=== PATIENT | male | born 1975 | race Caucasian/White ===

== ENCOUNTER 2019-05-26 11:41 | Emergency (ER) | payer OTHER, SELFPAY ==
[2019-05-26 12:19] LABS: Absolute Lymphocytes (CBC) 2.2 K/uL (0.7-4.9); Basophils % 1.8 % (0-1.3); Eosinophils % 5.3 % (0-4.4); Lymphocytes % 26.3 % (15.3-44.8); MPV 8.5 fL (7.6-11.3); Monocytes % 2.9 % (3.3-12.3); RBC Red Blood Cell Count 5.01 M/uL (4.33-5.43)
[2019-05-26] MEDS ORDERED: MORPHINE 4 MG/ML SYR ONE ×2 (12:47→16:35)
[2019-05-26] MEDS ORDERED: ONDANSETRON 4 MG/2 ML VIAL ONE ×2 (12:47→16:35)
[2019-05-26] MEDS ORDERED: NA CHLORIDE 0.9% 1,000 ML ONE ×2 (12:47→14:20)
[2019-05-26] MEDS ORDERED: PANTOPRAZOLE 40 MG INJ ONE (12:47)
[2019-05-26 12:53] LABS: Protime INR 0.94
--- NOTE | 2019-05-26 13:10 | RAD REPORT ---
EXAM DESCRIPTION: RAD - Chest Single View - 05/26/2019 12:48 pm CLINICAL HISTORY: CHEST PAIN Chest pain. COMPARISON: CHEST SINGLE VIEW dated 10/27/2015 FINDINGS: Portable technique limits examination quality. The lungs are grossly clear. The heart is normal in size. No displaced fractures. IMPRESSION: No acute intrathoracic process suspected.
[2019-05-26 13:16] LABS: Urine Blood NEGATIVE (NEG); Urine Glucose 2+ (NEG); Urine Protein NEGATIVE (NEG); Urine pH 5.5 (5.0-7.0)
[2019-05-26 13:19] LABS: Albumin 4.2 g/dL (3.4-5.0); Bilirubin Direct 0.1 mg/dL (0-0.2); Bilirubin Total 0.8 mg/dL (0.2-1.0); Potassium 4.3 mmol/L (3.5-5.1); Protein, Total 7.7 g/dL (6.4-8.2)
[2019-05-26 13:22] LABS: Lipase 392 U/L (73-393); Troponin (Emerg Dept Use Only) < 0.02 ng/mL (0.0-0.045)
--- NOTE | 2019-05-26 14:13 | RAD REPORT ---
EXAM DESCRIPTION: CT - Angio Aorta For Dissection - 05/26/2019 2:03 pm CLINICAL HISTORY: Chest pain radiating to the back. abdominal pain radiating to back;Chest pain COMPARISON: No comparisons TECHNIQUE: CT angiography of the aorta was performed with MIPs. All CT scans are performed using dose optimization technique as appropriate and may include automated exposure control or mA/KV adjustment according to patient size. FINDINGS: A left aortic arch is present with normal branching pattern of the great vessels.No acute aortic finding is seen such as aneurysm, penetrating ulcer or dissection. The celiac axis, SMA, CHEIKH and renal arteries are widely patent. No evidence of pulmonary embolism. The lungs are clear. Diffuse fatty liver is noted.Cholelithiasis.The spleen, adrenal glands and kidneys are within normal limits.Mild peripancreatic inflammatory changes seen in the pancreatic head. No bowel obstruction, free fluid or abscess.Normal appendix.No pathologic enlarged lymphadenopathy id entified. No fracture or worrisome bone lesion seen. IMPRESSION: Mild acute pancreatitis is suspected involving the pancreatic head and uncinate process region.No portal vein thrombus, pancreatic necrosis or pseudocyst identified. Cholelithiasis. No acute aortic abnormality.
[2019-05-26] MEDS ORDERED: INSULIN -REGULAR HUMAN 50 UNIT/0.5 ML ML ONE (14:20)
--- NOTE | 2019-05-26 15:45 | RAD REPORT ---
EXAM DESCRIPTION: US - Abdomen Exam Limited - 05/26/2019 3:36 pm CLINICAL HISTORY: upper abdomen pain;Epigastric pain COMPARISON: No comparisons FINDINGS: The gallbladder demonstrates small shadowing gallstones. No pericholecystic fluid or gallb ladder wall thickening. The common bile duct is normal measuring 5 mm. The liver demonstrates no findings of intrahepatic biliary dilatation. IMPRESSION: Cholelithiasis.
[2019-05-26] MEDS ORDERED: MAGNE/ALUM HYDROXD 30 ML UCUP ONE (16:34)
[2019-05-26] MEDS ORDERED: LIDOCAINE VISCOUS 2% SOLN 15 ML UDC ONE (16:35)
--- NOTE | 2019-05-26 17:14 | ER ---
Nurse's Notes [facility] Name: Vasyl Cope Age: 44 yrs Sex: Male : 1975 Arrival Date: 05/26/2019 Time: 11:42 Bed 16 Private MD: Diagnosis: Cholelithiasis;Acute pancreatitis;Diabetes mellitus due to underlying condition with hyperglycemia;Hypertensive heart disease Presentation: 05/26 11:45 Presenting complaint: Patient states: RUQ, LUQ abdominal, epigastric pain that radiated aj1 to the back and left shoulder since yesterday. Patient describes the pain as tightness. Denies N/V/D. Transition of care: patient was not received from another setting of care. Onset of symptoms was May 25, 2019. Risk Assessment: Do you want to hurt yourself or someone else? Patient reports no desire to harm self or others. Initial Sepsis Screen: Does the patient meet any 2 criteria? No. Patient's initial sepsis screen is negative. Does the patient have a suspected source of infection? Yes: Acute abdominal pain. Care prior to arrival: None. 11:45 Method Of Arrival: Ambulatory aj1 11:45 Acuity: BRENDAN 3 aj1 Triage Assessment: 11:48 General: Appears in no apparent distress. uncomfortable, Behavior is calm, cooperative, aj1 appropriate for age. Pain: Complains of pain in epigastric area and left upper quadrant Pain radiates to back, chest, anterior aspect of left shoulder and posterior aspect of left shoulder Pain currently is 9 out of 10 on a pain scale. Neuro: Level of Consciousness is awake, alert, obeys commands. Cardiovascular: Patient's skin is warm and dry. Respiratory: Airway is patent Respiratory effort is even, unlabored, Respiratory pattern is regular, symmetrical. Historical: - Allergies: 11:48 No Known Allergies; aj1 - Home Meds: 11:48 None [Active]; aj1 - PMHx: 11:48 Diabetes - NIDDM; High Cholesterol; Hypertension; aj1 - PSHx: 11:48 knee replacement; ACL repair; aj1 - Immunization history:: Flu vaccine is not up to date. - Social history:: Smoking status: Patient/guardian denies using tobacco. - Ebola Screening: : Patient denies travel to an Ebola-affected area in the 21 days before illness onset. Screenin:55 Abuse screen: Denies threats or abuse. Nutritional screening: No deficits noted. rb1 Tuberculosis screening: No symptoms or risk factors identified. Fall Risk None identified. Assessment: 11:55 General: Appears uncomfortable, Behavior is calm, cooperative. rb1 11:55 Pain: Complains of pain in epigastric area Pain radiates to back and left shoulder Pain rb1 currently is 10 out of 10 on a pain scale. Neuro: Level of Consciousness is awake, alert, obeys commands, Oriented to person, place, time, situation. Cardiovascular: Capillary refill < 3 seconds is brisk in bilateral fingers. Respiratory: Airway is patent Respiratory effort is even, unlabored, Respiratory pattern is regular, symmetrical. GI: Reports nausea. : No signs and/or symptoms were reported regarding the genitourinary system. Derm: Skin is pink, warm \T\ dry. Musculoskeletal: Range of motion: intact in all extremities. 12:55 Reassessment: Patient appears in no apparent distress at this time. Patient and/or rb1 family updated on plan of care and expected duration. Pain level reassessed. Patient is alert, oriented x 3, equal unlabored respirations, skin warm/dry/pink. 13:45 Reassessment: Patient appears in no apparent distress at this time. No changes from rb1 previously documented assessment. 14:43 Reassessment: Patient appears in no apparent distress at this time. Patient and/or rb1 family updated on plan of care and expected duration. Pain level reassessed. Patient is alert, oriented x 3, equal unlabored respirations, skin warm/dry/pink. 16:00 Reassessment: Patient appears in no apparent distress at this time. Patient and/or em family updated on plan of care and expected duration. Pain level reassessed. Patient is alert, oriented x 3, equal unlabored respirations, skin warm/dry/pink. rates pain 6/10. 17:16 Reassessment: Patient appears in no apparent distress at this time. Patient and/or em family updated on plan of care and expected duration. Pain level reassessed. Patient is alert, oriented x 3, equal unlabored respirations, skin warm/dry/pink. 17:49 Reassessment: reports pain is better, rates pain 4/10. em Vital Signs: 11:48 BP 181 / 97; Pulse 93; Resp 18; Temp 98.4; Pulse Ox 95% on R/A; Weight 106.59 kg (R); aj1 Height 5 ft. 10 in. (177.80 cm) (R); Pain 9/10; 12:45 BP 139 / 86; Pulse 88; Resp 14; Temp 98.6(O); Pulse Ox 96% on R/A; Pain 7/10; rb1 13:30 BP 130 / 96; Pulse 83; Resp 15; Temp 98.7(O); Pulse Ox 96% on R/A; Pain 5/10; rb1 14:30 BP 150 / 95; Pulse 81; Resp 15; Temp 98.5(O); Pulse Ox 96% on R/A; Pain 5/10; rb1 16:00 BP 160 / 95; Pulse 84; Resp 14; Pulse Ox 96% on R/A; Pain 6/10; em 11:48 Body Mass Index 33.72 (106.59 kg, 177.80 cm) aj1 ED Course: 11:42 Patient arrived in ED. as 11:47 Triage completed. aj1 11:48 Arm band placed on Patient placed in an exam room. aj1 11:50 Giovanny Puri PA is PHCP. cp 11:50 Kolby Ricks MD is Attending Physician. cp 11:55 Patient has correct armband on for positive identification. Placed in gown. Bed in low rb1 position. Call light in reach. Side rails up X 1. ro[address] reporter on. Pulse ox on. NIBP on. Warm blanket given. 12:05 Elida Seay, RN is Primary Nurse. rb1 12:20 Inserted saline lock: 20 gauge in left antecubital area, using aseptic technique. rb1 ,using aseptic technique. Inserted by SUNNY Badillo Blood collected. 12:49 XRAY Chest (1 view) In Process Unspecified. EDMS 14:03 CT Aorta for Dissection In Process Unspecified. EDMS 15:10 Report given to LUZ Bah. rb1 15:35 Ultrasound completed. Patient tolerated well. sg3 15:35 US Abdomen Limited: RUQ/epigastric area In Process Unspecified. EDMS 17:11 Win Hobson MD is Referral Physician. cp 17:48 No provider procedures requiring assistance completed. IV discontinued, intact, em bleeding controlled, No redness/swelling at site. Pressure dressing applied. Administered Medications: 12:35 Drug: ProTONIX 40 mg Route: IVP; Site: left forearm; rb1 13:00 Follow up: Response: No adverse reaction rb1 12:35 Drug: morphine 4 mg Route: IVP; Site: left forearm; rb1 13:00 Follow up: Response: No adverse reaction; Pain is decreased rb1 12:35 Drug: Zofran 4 mg Route: IVP; Site: right forearm; rb1 13:00 Follow up: Response: No adverse reaction; Nausea is decreased rb1 12:35 Drug: NS 0.9% 1000 ml Route: IV; Rate: 1 bolus; Site: left forearm; rb1 14:29 Drug: NS 0.9% 1000 ml Route: IV; Rate: 1 bolus; Site: left forearm; rb1 15:28 Follow up: IV Status: Completed infusion rb1 14:30 Drug: Insulin Regular Human 10 units {Co-Signature: la1 (Jus Munson RN).} {Note: IVP.} rb1 Route: IVP; Site: left forearm; 15:27 Follow up: Response: No adverse reaction; Blood sugar is lowered; BS 243 rb1 16:28 Drug: GI Cocktail without - (Maalox Suspension 30 ml, Lidocaine Liquid 2 % 15 ss ml) Route: PO; 17:50 Follow up: Response: No adverse reaction; Pain is decreased em 16:32 Drug: Zofran 4 mg Route: IVP; Site: left forearm; ss 17:50 Follow up: Response: No adverse reaction em 16:32 Drug: morphine 4 mg Route: IVP; Site: left antecubital; ss 17:50 Follow up: Response: No adverse reaction; Pain is decreased em Point of Care Testing: Blood Glucose: 15:18 Blood Glucose: 243 mg/dL; rb1 Ranges: Intake: Outcome: 17:13 Discharge ordered by . cp 17:49 Discharged to home ambulatory. em 17:49 Condition: good 17:49 Discharge instructions given to patient, Instructed on discharge instructions, follow up and referral plans. medication usage, Demonstrated understanding of instructions, follow-up care, medications, Prescriptions given X 2. 17:51 Patient left the ED. em Signatures: Dispatcher [employer] Elvi Jiménez RN RN aj1 Olvin Donahue, INDUSTRIAL PRODUCTION MANAGER INDUSTRIAL PRODUCTION MANAGER em Nathalie Jiménez Shelby, RN RN ss PageGiovanny PA PA cp Barber, Rebecca, RN RN rb1 Rhonda Canela sg3 Jus Munson RN la1 Corrections: (The following items were deleted from the chart) 11:53 11:45 Presenting complaint: Patient states: RUQ abdominal, epigastric pain that aj1 radiated to the back and right shoulder since yesterday. Patient describes the pain as tightness. Denies N/V/D. aj1 16:47 16:00 BP 100 / 95; Pulse 18bpm; Resp 14bpm; Pulse Ox 96% RA; Pain 6/10; em em 16:48 16:00 BP 100 / 95; Pulse 84bpm; Resp 14bpm; Pulse Ox 96% RA; Pain 6/10; em em
--- NOTE | 2019-05-26 17:14 | EDPHYS ---
Physician Documentation [facility] [place], [place] Name: Vasyl Cope Age: 44 yrs Sex: Male : 1975 Arrival Date: 05/26/2019 Time: 11:42 Bed 16 Private MD: ED Physician Kolby Ricks HPI: 05/26 12:05 This 44 yrs old Male presents to ER via Ambulatory with complaints of cp Epigastric Pain, Back Pain, Shoulder Pain. 12:05 The patient presents with abdominal pain in the epigastric area, in the upper abdomen. cp Onset: The symptoms/episode began/occurred yesterday. The symptoms radiate to left back, chest. Associated signs and symptoms: Pertinent positives: nausea, Pertinent negatives: blood in stools, constipation, diarrhea, fever, shortness of breath, vomiting. The symptoms are described as tightness. 12:05 Modifying factors: the symptoms are aggravated by pressure. Severity of pain: in the cp emergency department the pain is unchanged despite home interventions, is a . Historical: - Allergies: 11:48 No Known Allergies; aj1 - Home Meds: 11:48 None [Active]; aj1 - PMHx: 11:48 Diabetes - NIDDM; High Cholesterol; Hypertension; aj1 - PSHx: 11:48 knee replacement; ACL repair; aj1 - Immunization history:: Flu vaccine is not up to date. - Social history:: Smoking status: Patient/guardian denies using tobacco. - Ebola Screening: : Patient denies travel to an Ebola-affected area in the 21 days before illness onset. ROS: 12:10 Constitutional: Negative for body aches, chills, fever, poor PO intake. cp 12:10 Eyes: Negative for injury, pain, redness, and discharge. cp 12:10 ENT: Negative for drainage from ear(s), ear pain, sore throat, difficulty swallowing, difficulty handling secretions. 12:10 Cardiovascular: Positive for chest pain, Negative for edema, palpitations. 12:10 Respiratory: Negative for cough, shortness of breath, wheezing. 12:10 Abdomen/GI: Positive for abdominal pain, nausea, of the epigastric area, right upper quadrant and left upper quadrant, Negative for vomiting, diarrhea, constipation, black/tarry stool, rectal bleeding. 12:10 Back: Positive for radiated pain, Negative for injury or acute deformity, decreased range of motion. 12:10 Skin: Negative for cellulitis, rash. 12:10 Neuro: Negative for altered mental status, headache, syncope, weakness. 12:10 All other systems are negative. Exam: 12:15 ECG was reviewed by the Attending Physician. cp 12:18 Constitutional: The patient appears alert, awake, non-diaphoretic, non-toxic, well cp developed, well nourished, in obvious distress, mildly distressed, uncomfortable. 12:18 Head/Face: Normocephalic, atraumatic. Eyes: Pupils equal round and reactive to light, cp extra-ocular motions intact. Lids and lashes normal. Conjunctiva and sclera are non-icteric and not injected. Cornea within normal limits. Periorbital areas with no swelling, redness, or edema. ENT: Nares patent. No nasal discharge, no septal abnormalities noted. Tympanic membranes are normal and external auditory canals are clear. Oropharynx with no redness, swelling, or masses, exudates, or evidence of obstruction, uvula midline. Mucous membranes moist. Chest/axilla: Normal chest wall appearance and motion. Nontender with no deformity. No lesions are appreciated. 12:18 Cardiovascular: Rate: normal, Rhythm: regular, Pulses: Pulses are 2+ in right radial artery and left radial artery. Heart sounds: murmur, not appreciated, rub, not appreciated, gallop, not appreciated, Edema: is not appreciated, JVD: is not appreciated. 12:18 Respiratory: the patient does not display signs of respiratory distress, Respirations: normal, no use of accessory muscles, no retractions, no splinting, no tachypnea, labored breathing, is not present, Breath sounds: are clear throughout, no decreased breath sounds, no stridor, no wheezing. 12:18 Abdomen/GI: Inspection: abdomen appears normal, Bowel sounds: active, all quadrants, Palpation: soft, in all quadrants, severe abdominal tenderness, in the epigastric area, right upper quadrant and left upper quadrant, rebound tenderness, is not appreciated, voluntary guarding, is elicited in the epigastric area, right upper quadrant and left upper quadrant. 12:18 Back: ROM is normal, vertebral tenderness, is not appreciated. 12:18 Skin: no rash present. 12:18 Neuro: Orientation: to person, place \T\ time. Mentation: is normal, Cerebellar function: is grossly normal, Motor: moves all fours, strength is normal, Sensation: is normal. 16:37 ECG was reviewed by the Attending Physician. cp Vital Signs: 11:48 BP 181 / 97; Pulse 93; Resp 18; Temp 98.4; Pulse Ox 95% on R/A; Weight 106.59 kg (R); aj1 Height 5 ft. 10 in. (177.80 cm) (R); Pain 9/10; 12:45 BP 139 / 86; Pulse 88; Resp 14; Temp 98.6(O); Pulse Ox 96% on R/A; Pain 7/10; rb1 13:30 BP 130 / 96; Pulse 83; Resp 15; Temp 98.7(O); Pulse Ox 96% on R/A; Pain 5/10; rb1 14:30 BP 150 / 95; Pulse 81; Resp 15; Temp 98.5(O); Pulse Ox 96% on R/A; Pain 5/10; rb1 16:00 BP 160 / 95; Pulse 84; Resp 14; Pulse Ox 96% on R/A; Pain 6/10; em 11:48 Body Mass Index 33.72 (106.59 kg, 177.80 cm) aj1 MDM: 11:54 Patient medically screened. cp 12:30 Differential diagnosis: coronary artery disease, cholecystitis, Cholelithiasis, cp gastritis, gastroesophageal reflux disease, pancreatitis, Peptic Ulcer Disease, Perf. Duodenal Ulcer, Perf. Gastric Ulcer, Ureterolithiasis. 17:12 Data reviewed: vital signs, nurses notes, lab test result(s), EKG, radiologic studies, cp CT scan, plain films, ultrasound. 17:12 Test interpretation: by ED physician or midlevel provider: ECG, plain radiologic cp studies. Counseling: I had a detailed discussion with the patient and/or guardian regarding: the historical points, exam findings, and any diagnostic results supporting the discharge/admit diagnosis, the presence of at least one elevated blood pressure reading (>120/80) during this emergency department visit, lab results, radiology results, the need for outpatient follow up, a family practitioner, a general surgeon, to return to the emergency department if symptoms worsen or persist or if there are any questions or concerns that arise at home. Response to treatment: the patient's symptoms have markedly improved after treatment, VSS. Pain markedly improved with meds. Discussed results of labs and today's testing. Symptoms not likely cardiac in nature, will discharge to home for outpatient f/u. Patient instructed on need for family physician to treat diabetes, HTN and hyperlipidemia. 05/26 12:00 Order name: Basic Metabolic Panel 05/26 12:00 Order name: CBC with Diff 05/26 12:00 Order name: LFT's 05/26 12:00 Order name: Magnesium 05/26 12:00 Order name: NT PRO-BNP; Complete Time: 13:26 05/26 12:00 Order name: PT-INR; Complete Time: 13:26 05/26 12:00 Order name: Troponin (emerg Dept Use Only); Complete Time: 13:26 05/26 13:29 Interpretation: TROPED < 0.02; Reviewed. 05/26 12:00 Order name: Lipase; Complete Time: 13:26 05/26 12:01 Order name: Basic Metabolic Panel; Complete Time: 13:26 EDMD 05/26 13:26 Interpretation: Normal except: NA 128; CL 94; GLUC 337; CRE 1.47; GFR 52. 05/26 12:01 Order name: CBC with Automated Diff; Complete Time: 13:26 EDMD 05/26 13:26 Interpretation: Normal except: MN% 2.9; EOSINOPHIL % 5.3; BASO% 1.8. 05/26 12:01 Order name: Liver (Hepatic) Function; Complete Time: 13:26 EDMD 05/26 15:47 Interpretation: Normal except: AST 47. 05/26 12:01 Order name: Magnesium; Complete Time: 13:26 EDMD 05/26 12:14 Order name: Urine Dipstick--Ancillary (enter results); Complete Time: 13:26 em 05/26 15:56 Order name: Troponin I; Complete Time: 17:10 05/26 17:10 Interpretation: Reviewed. 05/26 12:00 Order name: XRAY Chest (1 view); Complete Time: 13:26 05/26 12:00 Order name: EKG; Complete Time: 12:03 05/26 12:00 Order name: Cardiac monitoring; Complete Time: 12:43 05/26 12:00 Order name: EKG - Nurse/Tech; Complete Time: 12:43 cp 05/26 13:29 Order name: CT Aorta for Dissection; Complete Time: 14:18 cp 05/26 14:22 Order name: US Abdomen Limited: RUQ/epigastric area; Complete Time: 15:46 cp 05/26 15:55 Interpretation: Report reviewed. cp 05/26 15:56 Order name: EKG; Complete Time: 15:58 cp 05/26 12:00 Order name: IV Saline Lock; Complete Time: 12:43 cp 05/26 12:00 Order name: Labs collected and sent; Complete Time: 12:43 cp 05/26 12:00 Order name: O2 Per Protocol; Complete Time: 12:43 cp 05/26 12:00 Order name: O2 Sat Monitoring; Complete Time: 12:43 cp 05/26 15:56 Order name: EKG - Nurse/Tech; Complete Time: 16:32 cp EC:15 Rate is 87 beats/min. Rhythm is regular. MA interval is normal. QRS interval is normal. cp QT interval is normal. Interpreted by me. Reviewed by me. 16:37 Rate is 81 beats/min. Rhythm is regular. MA interval is normal. QRS interval is cp prolonged at 104 msec. QT interval is normal. T waves are Inverted in lead III. Interpreted by me. Reviewed by me. Administered Medications: 12:35 Drug: ProTONIX 40 mg Route: IVP; Site: left forearm; rb1 13:00 Follow up: Response: No adverse reaction rb1 12:35 Drug: morphine 4 mg Route: IVP; Site: left forearm; rb1 13:00 Follow up: Response: No adverse reaction; Pain is decreased rb1 12:35 Drug: Zofran 4 mg Route: IVP; Site: right forearm; rb1 13:00 Follow up: Response: No adverse reaction; Nausea is decreased rb1 12:35 Drug: NS 0.9% 1000 ml Route: IV; Rate: 1 bolus; Site: left forearm; rb1 14:29 Drug: NS 0.9% 1000 ml Route: IV; Rate: 1 bolus; Site: left forearm; rb1 15:28 Follow up: IV Status: Completed infusion rb1 14:30 Drug: Insulin Regular Human 10 units {Co-Signature: la1 (Jus Munson RN).} {Note: IVP.} rb1 Route: IVP; Site: left forearm; 15:27 Follow up: Response: No adverse reaction; Blood sugar is lowered; BS 243 rb1 16:28 Drug: GI Cocktail without - (Maalox Suspension 30 ml, Lidocaine Liquid 2 % 15 ss ml) Route: PO; 17:50 Follow up: Response: No adverse reaction; Pain is decreased em 16:32 Drug: Zofran 4 mg Route: IVP; Site: left forearm; ss 17:50 Follow up: Response: No adverse reaction em 16:32 Drug: morphine 4 mg Route: IVP; Site: left antecubital; ss 17:50 Follow up: Response: No adverse reaction; Pain is decreased em Point of Care Testing: Blood Glucose: 15:18 Blood Glucose: 243 mg/dL; rb1 Ranges: Critical Glucose Levels:Adult <50 mg/dl or >400 mg/dl <40 mg/dl or >180 mg/dl Disposition: 18:35 Co-signature as Attending Physician, Kolby Ricks MD. rn Disposition: 05/26/19 17:13 Discharged to Home. Impression: Cholelithiasis, Acute pancreatitis, Diabetes mellitus due to underlying condition with hyperglycemia, Hypertensive heart disease. - Condition is Stable. - Discharge Instructions: Hypertension, Acute Pancreatitis, Cholelithiasis, Blood Glucose Monitoring, Adult, Diabetes Mellitus and Food, Managing Your Hypertension, Form - Excuse from Work, School, or Physical Activity. - Prescriptions for Zofran 4 mg Oral Tablet - take 1 tablet by ORAL route every 12 hours As needed; 20 tablet. Tramadol 50 mg Oral Tablet - take 1 tablet by ORAL route every 8 hours As needed as needed; 15 tablet. - Work release form, Medication Reconciliation Form, Thank You Letter, Antibiotic Education, Prescription Opioid Use form. - Follow up: Win Hobson MD; When: 2 - 3 days; Reason: cholelithiasis. Follow up: Private Physician; When: 1 - 2 days; Reason: Recheck today's complaints. - Problem is new. - Symptoms have improved. Signatures: Dispatcher [employer] Elvi Jiménez RN RN aj1 Olvin Donahue, NAPKIN BAND WRAPPER NAPKIN BAND WRAPPER Kolby Valdivia MD MD rn Smirch, Shelby, RN RN ss Giovanny Puri PA PA cp Barber, Rebecca, RN RN rb1 Jus Munson RN la1 Corrections: (The following items were deleted from the chart) 17:51 17:13 05/26/2019 17:13 Discharged to Home. Impression: Cholelithiasis; Acute em pancreatitis; Diabetes mellitus due to underlying condition with hyperglycemia; Hypertensive heart disease. Condition is Stable. Forms are Medication Reconciliation Form, Thank You Letter, Antibiotic Education, Prescription Opioid Use. Follow up: Win Hobson; When: 2 - 3 days; Reason: cholelithiasis. Follow up: Private Physician; When: 1 - 2 days; Reason: Recheck today's complaints. Problem is new. Symptoms have improved. cp
--- NOTE | 2019-05-27 06:37 | EKG ---
Test Date: 2019-05-26 Test Time: 16:32:22 [employer] Director: [employer] MEASUREMENT RESULTS: Intervals: Rate: 81 HI: 128 QRSD: 104 QT: 374 QTc: 434 [place]: P: 37 HI: 128 QRS: -10 T: -7 INTERPRETIVE STATEMENTS: Normal sinus rhythm Normal ECG Compared to ECG 05/26/2019 12:01:55 Left-axis deviation no longer present Left ventricular hypertrophy no longer present Electronically Signed On 05-27-19 06:36:17 CDT by Johnathan Sepulveda
--- NOTE | 2019-05-27 06:38 | EKG ---
Test Date: 2019-05-26 Test Time: 12:01:55 Tenant Relations Coordinator: MEASUREMENT RESULTS: Intervals: Rate: 87 ME: 126 QRSD: 98 QT: 348 QTc: 418 [place]: P: 26 ME: 126 QRS: -30 T: 39 INTERPRETIVE STATEMENTS: Normal sinus rhythm Possible Left atrial enlargement Left axis deviation Left ventricular hypertrophy Abnormal ECG Compared to ECG 10/27/2015 14:51:06 Left-axis deviation now present Electronically Signed On 05-27-19 06:36:30 CDT by Johnathan Sepulveda
== END 2019-05-26 17:51 | disposition home or self-care (01) ==
LOC: ER 11:41
DX: K80.20 Calculus of gallbladder without cholecystitis without obstruction (principal); K85.90 Acute pancreatitis without necrosis or infection, unspecified; I11.9 Hypertensive heart disease without heart failure; E08.65 Diabetes mellitus due to underlying condition with hyperglycemia; I10 Essential (primary) hypertension
CPT/HCPCS: 36415; 71045; 71275; 74175; 76705; 80048; 80076; 81003; 82962; 83690; 83735; 83880; 84484; 85025; 85610; 93005; 99284; C9113; J2405; J7030; Q9967

== ENCOUNTER 2023-05-17 22:03 | Inpatient (IN) | payer BC, OTHER ==
[2023-05-17 22:38] LABS: Absolute Lymphocytes (CBC) 2.2 K/uL (0.7-4.9); Lymphocytes % 20.7 % (15.3-44.8); MCV 84.4 fL (80-100); MPV 7.8 fL (7.6-11.3); RBC Red Blood Cell Count 4.74 M/uL (4.33-5.43)
[2023-05-17] MEDS ORDERED: ONDANSETRON 4 MG/2 ML VIAL ONE (22:38)
[2023-05-17] MEDS ORDERED: Ringers Lactate 1,000 ML IV ONE (22:38)
[2023-05-17] MEDS ORDERED: MORPHINE 4 MG/ML SYR ONE (22:38)
[2023-05-17 23:45] LABS: Albumin 4.1 g/dL (3.4-5.0); Bilirubin Total 0.6 mg/dL (0.2-1.0); Protein, Total 7.5 g/dL (6.4-8.2)
[2023-05-17 23:53] LABS: Blood Morphology Comment NOT SEEN (NOT SEEN); Platelet Estimate ADEQ
[2023-05-18 00:43] LABS: HDL Cholesterol 28 mg/dL (40-60)
[2023-05-18 00:55] LABS: LDL, Direct 128 mg/dL (100-129)
--- NOTE | 2023-05-18 01:34 | EDPHYS ---
Physician Documentation [facility] Name: Vasyl Cope Age: 48 yrs Sex: Male : 1975 Arrival Date: 05/17/2023 Time: 22:03 Bed 6 Private MD: ED Physician Shmuel Pringle HPI: 05/17 22:22 This 48 yrs old Male presents to ER via Ambulatory with complaints of Abdominal Pain. jmm 22:22 The patient presents with abdominal pain. Onset: The symptoms/episode began/occurred jmm today. The symptoms do not radiate. Associated signs and symptoms: Pertinent positives: nausea. The symptoms are described as achy. Modifying factors: The symptoms are alleviated by nothing, the symptoms are aggravated by nothing. The patient has experienced similar episodes in the past. Historical: - Allergies: 22:36 No Known Allergies; jj7 - PMHx: 22:15 Diabetes - NIDDM; High Cholesterol; Hypertension; kd3 - Immunization history:: Adult Immunizations up to date. - Social history:: Smoking status: Patient/guardian denies using tobacco, but has a distant history of tobacco abuse. ROS: 22:22 Constitutional: Negative for fever, chills, and weight loss, Cardiovascular: Negative jmm for chest pain, palpitations, and edema, Respiratory: Negative for shortness of breath, cough, wheezing, and pleuritic chest pain. 22:22 Abdomen/GI: Positive for abdominal pain. 22:22 All other systems are negative. Exam: 22:22 Constitutional: This is a well developed, well nourished patient who is awake, alert, jmm and in no acute distress. Head/Face: atraumatic. Eyes: EOMI, no conjunctival erythema appreciated ENT: Moist Mucus Membranes Neck: Trachea midline, Supple Chest/axilla: Normal chest wall appearance and motion. Cardiovascular: Regular rate and rhythm. No edema appreciated Respiratory: Normal respirations, no respiratory distress appreciated 22:22 Back: Normal ROM Skin: General appearance color normal MS/ Extremity: Moves all extremities, no obvious deformities appreciated, no edema noted to the lower extremities Neuro: Awake and alert Psych: Behavior is normal, Mood is normal, Patient is cooperative and pleasant 22:22 Abdomen/GI: Inspection: abdomen appears normal, Bowel sounds: normal, Palpation: soft, moderate abdominal tenderness, in all quadrants. Vital Signs: 22:15 BP 169 / 97; Pulse 95; Resp 16; Temp 98(O); Pulse Ox 97% ; Weight 102.06 kg; Height 5 kd3 ft. 10 in. ; 23:53 BP 146 / 95; Pulse 81; Resp 17; Pulse Ox 96% on R/A; 05/18 00:30 BP 129 / 77; Pulse 82; Resp 17; Pulse Ox 95% ; jj7 01:42 BP 131 / 80; Pulse 79; Resp 17; Pulse Ox 94% ; jj7 02:30 BP 116 / 78; Pulse 86; Resp 17; Temp 98; Pulse Ox 99% on R/A; 05/17 22:15 Body Mass Index 32.28 (102.06 kg, 177.8 cm) kd3 [place] Coma Score: 02:58 Eye Response: spontaneous(4). Motor Response: obeys commands(6). Verbal Response: rv oriented(5). Total: 15. MDM: 05/17 22:22 Patient medically screened. [facility] 05/18 02:14 Data reviewed: vital signs, nurses notes, lab test result(s), radiologic studies, CT [facility] scan. Consideration of Admission/Observation Patient was admitted/placed on observation. Escalation of care including admission/observation considered. I considered the following discharge prescriptions or medication management in the emergency department Medications were administered in the Emergency Department. See MAR. Counseling: I had a detailed discussion with the patient and/or guardian regarding: the historical points, exam findings, and any diagnostic results supporting the discharge/admit diagnosis, lab results, radiology results, the need for further work-up and treatment in the hospital. 05/17 22:24 Order name: CBC with Diff; Complete Time: 23:59 [facility] 05/17 22:24 Order name: CMP; Complete Time: 23:50 [facility] 05/17 22:24 Order name: Lipase; Complete Time: 23:50 [facility] 05/17 23:17 Order name: Manual Differential; Complete Time: 23:59 [facility] 05/18 00:12 Order name: Lipid Profile; Complete Time: 00:57 [facility] 05/18 00:47 Order name: LDL, Direct; Complete Time: 00:57 [facility] 05/18 02:56 Order name: Glucose, Ancillary Testing; Complete Time: 02:58 [facility] 05/17 22:24 Order name: CT Abd/Pelvis - IV Contrast Only [facility] 05/17 22:24 Order name: IV Saline Lock; Complete Time: 22:35 [facility] 05/17 22:24 Order name: Labs collected and sent; Complete Time: 22:35 [facility] Administered Medications: 05/17 22:35 Drug: Lactated Ringers Solution IV 1000 ml Route: IV; Rate: 1000 bolus; Site: right [facility] forearm; 23:53 Follow up: IV Status: Completed infusion [facility] 22:35 Drug: morphine IVP or IV 4 mg Route: IVP; Infused Over: 4 mins; Site: right forearm; j 23:53 Follow up: Response: Marked relief of symptoms [facility] 22:35 Drug: Ondansetron IVP 4 mg Route: IVP; Site: right forearm; [facility] 23:53 Follow up: Response: Marked relief of symptoms [facility] 05/18 02:44 Drug: Insulin Drip - (Insulin Regular Human IVP 100 units, NS 0.9% IV 100 ml) rv {Co-Signature: maykel (Jitendra Ledesma RN).} Route: IV; Rate: calculated rate; Site: right antecubital; 02:57 Follow up: IV Status: Infusion continued upon admission rv 02:47 Drug: morphine IVP or IV 4 mg Route: IVP; Infused Over: 4 mins; Site: right antecubital;rv 02:55 Follow up: Response: No adverse reaction rv 02:48 Drug: Lactated Ringers Solution IV 1000 ml Route: IV; Rate: 1000 bolus; Site: right rv antecubital; 02:57 Follow up: IV Status: Infusion continued upon admission rv Disposition Summary: 05/18/23 01:33 Hospitalization Ordered Hospitalization Status: Inpatient Admission [facility] Provider: Ibrahima Sousa Condition: Stable ladonna Problem: new jmm Symptoms: are unchanged [facility] Bed/Room Type: Standard [facility] Location: Intensive Care Unit(05/18/23 02:20) cg Room Assignment: 8-(05/18/23 02:20) cg Diagnosis - Acute Pancreatitis [facility] Forms: - Medication Reconciliation Form [facility] - SBAR form [facility] Addendum: 05/19/2023 05:20 Co-signature as Attending Physician, Shmuel Pringle MD I agree with the assessment s p4 and plan of care. I reviewed the patient's care provided by the Advanced Practice Provider and agree with the diagnosis and treatment plan. Signatures: Dispatcher [employer] EDJeffery Merino PA PA jmm Attema, Lee, ASSET PROTECTION SPECIALIST-C ASSET PROTECTION SPECIALIST-Cla1 Kira Otoole, RN RN cg Adam Keenan RN RN rv Tonya Collins RN RN kd3 Jitendra Ledesma RN RN jj7 Shmuel Pringle MD MD sp4 Jitendra Ledesma RN jj7 Corrections: (The following items were deleted from the chart) 05/18 02:20 01:33 Telemetry/MedSurg (Inpatient) fabienne aceves 02:20 01:33 fabienne aceves
--- NOTE | 2023-05-18 01:34 | ER ---
Nurse's Notes [facility] Name: Vasyl Cope Age: 48 yrs Sex: Male : 1975 Arrival Date: 05/17/2023 Time: 22:03 Bed 6 Private MD: Diagnosis: Acute Pancreatitis Presentation: 05/17 22:13 Chief complaint: Patient states: i think my pancreatitis is flaring up again. I have kd3 pretty severe upper abdominal pain. I have not had any nausea, vomiting or diarrhea. Coronavirus screen: Vaccine status: Patient reports being unvaccinated. Ebola Screen: No symptoms or risks identified at this time. Initial Sepsis Screen: Does the patient meet any 2 criteria? No. Patient's initial sepsis screen is negative. Does the patient have a suspected source of infection? No. Patient's initial sepsis screen is negative. Risk Assessment: Do you want to hurt yourself or someone else? Patient reports no desire to harm self or others. Onset of symptoms was May 17, 2023. 22:13 Method Of Arrival: Ambulatory kd3 22:13 Acuity: BRENDAN 3 kd3 Triage Assessment: 22:15 General: Appears uncomfortable, Behavior is calm, cooperative. Pain: Complains of pain kd3 in right upper quadrant and left upper quadrant. GI: Abdomen is non-distended, Reports upper abdominal pain. Historical: - Allergies: 22:36 No Known Allergies; jj7 - PMHx: 22:15 Diabetes - NIDDM; High Cholesterol; Hypertension; kd3 - Immunization history:: Adult Immunizations up to date. - Social history:: Smoking status: Patient/guardian denies using tobacco, but has a distant history of tobacco abuse. Screenin:15 [facility] ED Fall Risk Assessment (Adult) History of falling in the last 3 months, jj7 including since admission No falls in past 3 months (0 pts) Confusion or Disorientation No (0 pts) Intoxicated or Sedated No (0 pts) Impaired Gait No (0 pts) Mobility Assist Device Used No (0 pt) Altered Elimination No (0 pt) Score/Fall Risk Level 0 - 2 = Low Risk Oriented to surroundings, Maintained a safe environment. Abuse screen: Denies threats or abuse. Nutritional screening: No deficits noted. Tuberculosis screening: No symptoms or risk factors identified. Assessment: 22:15 General: Appears in no apparent distress. uncomfortable, Behavior is calm, cooperative, jj7 appropriate for age. Pain: Complains of pain in abdomen Pain currently is 8 out of 10 on a pain scale. 05/18 02:58 GI: Bowel sounds present X 4 quads. Abd is soft and non tender X 4 quads. rv Vital Signs: 05/17 22:15 BP 169 / 97; Pulse 95; Resp 16; Temp 98(O); Pulse Ox 97% ; Weight 102.06 kg; Height 5 kd3 ft. 10 in. ; 23:53 BP 146 / 95; Pulse 81; Resp 17; Pulse Ox 96% on R/A; rv 05/18 00:30 BP 129 / 77; Pulse 82; Resp 17; Pulse Ox 95% ; jj7 01:42 BP 131 / 80; Pulse 79; Resp 17; Pulse Ox 94% ; jj7 02:30 BP 116 / 78; Pulse 86; Resp 17; Temp 98; Pulse Ox 99% on R/A; rv 05/17 22:15 Body Mass Index 32.28 (102.06 kg, 177.8 cm) kd3 [place] Coma Score: 02:58 Eye Response: spontaneous(4). Motor Response: obeys commands(6). Verbal Response: rv oriented(5). Total: 15. ED Course: 05/17 22:06 Patient arrived in ED. ja2 22:11 Jeffery Dawn PA is PHCP. m 22:11 Shmuel Pringle MD is Attending Physician. [facility] 22:15 Triage completed. kd3 22:15 Patient has correct armband on for positive identification. Bed in low position. Call jj7 light in reach. 22:23 Jitendra Ledesma, LISA is Primary Nurse. jj7 22:23 Inserted saline lock: 20 gauge in right forearm, using aseptic technique. Blood jj7 collected. 22:35 CT Abd/Pelvis - IV Contrast Only Sent. jj7 22:36 Lipase Sent. jj7 22:36 CMP Sent. jj7 22:36 CBC with Diff Sent. jj7 22:45 Warm blanket given. Pillow given. jj7 05/18 00:47 CT Abd/Pelvis - IV Contrast Only In Process Unspecified. EDMS 01:32 Ibrahima Sousa MD is Hospitalizing Provider. [facility] 02:57 No provider procedures requiring assistance completed. Patient admitted, IV remains in rv place. 02:58 Arm band placed on right wrist. rv Administered Medications: 05/17 22:35 Drug: Lactated Ringers Solution IV 1000 ml Route: IV; Rate: 1000 bolus; Site: right jj7 forearm; 23:53 Follow up: IV Status: Completed infusion jj7 22:35 Drug: morphine IVP or IV 4 mg Route: IVP; Infused Over: 4 mins; Site: right forearm; jj7 23:53 Follow up: Response: Marked relief of symptoms jj7 22:35 Drug: Ondansetron IVP 4 mg Route: IVP; Site: right forearm; jj7 23:53 Follow up: Response: Marked relief of symptoms jj7 05/18 02:44 Drug: Insulin Drip - (Insulin Regular Human IVP 100 units, NS 0.9% IV 100 ml) rv {Co-Signature: [email or web address] (Jitendra Ledesma RN).} Route: IV; Rate: calculated rate; Site: right antecubital; 02:57 Follow up: IV Status: Infusion continued upon admission rv 02:47 Drug: morphine IVP or IV 4 mg Route: IVP; Infused Over: 4 mins; Site: right antecubital;rv 02:55 Follow up: Response: No adverse reaction rv 02:48 Drug: Lactated Ringers Solution IV 1000 ml Route: IV; Rate: 1000 bolus; Site: right rv antecubital; 02:57 Follow up: IV Status: Infusion continued upon admission rv Medication: 05/17 22:15 VIS not applicable for this client. jj7 Outcome: 05/18 01:33 Decision to Hospitalize by Provider. [facility] 02:58 Admitted to ICU accompanied by nurse, via stretcher, room 8, on monitor, with chart, rv Report called to ZEN GONZALEZ 02:58 Condition: good 02:58 Instructed on the need for admit. 02:59 Patient left the ED. rv Signatures: Dispatcher [employer] EDMS Jeffery Dawn PA PA jmm Vicente, Ronaldo, RN RN rv Ashanti May Kyli RN RN kd3 Jitendra Ledesma RN RN jj7 Jitendra Ledesma RN jj7
[2023-05-18] MEDS ORDERED: Ringers Lactate 1,000 ML IV ONE (02:40)
[2023-05-18] MEDS ORDERED: NA CHLORIDE 0.9% 100 ML ONE (02:40)
[2023-05-18] MEDS ORDERED: MORPHINE 4 MG/ML SYR ONE (02:40)
[2023-05-18] MEDS ORDERED: INSULIN -REGULAR HUMAN 50 UNIT/0.5 ML ML ONE (02:42)
--- NOTE | 2023-05-18 02:46 | P.HP ---
Certification for Inpatient Patient admitted to: Inpatient With expected LOS: >2 Midnights Patient will require the following post-hospital care: None Practitioner: I am a practitioner with admitting privileges, knowledge of patient current condition, hospital course, and medical plan of care. Services: Services provided to patient in accordance with Admission requirements found in Title 42 Section 412.3 of the Code of Federal Regulations <Jus Munson - Last Filed: 05/18/23 02:43> Patient History Date of Service: 05/18/23 Reason for admission: Acute pancreatitis History of Present Illness: 48-year-old male with history of coj-[id number] diabetes, hypertension, hyperlipidemia, hypertriglyceridemia, hypertriglyceridemia induced pancreatitis presents the emergency department chief complaint of epigastric pain which began approximately 48 hours ago. He reports he was hospitalized at [facility] approximately 2 months ago for similar complaint with hypertriglyceridemia induced pancreatitis, he has been relatively noncompliant with his medications since discharge as he has a very busy job. He was evaluated in the emergency department his labs are significant for triglycerides greater than 4000 [address] findings consistent with acute pancreatitis without complications. He was started on insulin drip and IV fluids in the ED, will need to be admitted to the ICU for hypertriglyceridemia induced acute pancreatitis. 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, lives at home with family - Family History Family History: Reviewed- Non-Contributory - Social History Smoking Status: Never smoker Alcohol use: No CD- Drugs: No Caffeine use: Yes Place of Residence: Home <Jus Munson - Last Filed: 05/18/23 02:43> Date of Service: 05/18/23 <Ibrahima Sousa - Last Filed: 05/18/23 14:28> Allergies No Known Food Allergies Allergy (Verified 05/18/23 03:42) unkown Home Medications: Allopurinol 100 mg PO DAILY 05/18/23 Atorvastatin Calcium 40 mg PO DAILY 05/18/23 Colchicine 0.6 mg PO BID 05/18/23 Cyclobenzaprine [Flexeril] 10 mg PO BEDTIME 05/18/23 Empagliflozin [Jardiance] 25 mg PO DAILY 05/18/23 Fenofibrate 160 mg PO DAILY 05/18/23 Gabapentin 300 mg PO BID 05/18/23 Glipizide [Glipizide ER] 10 mg PO BID 05/18/23 Icosapent Ethyl [Vascepa] 1 gm PO BID 05/18/23 Levothyroxine [Synthroid*] 0.112 mg PO DAILY 05/18/23 Meloxicam 15 mg PO DAILY PRN 05/18/23 Metformin ER [Glucophage ER*] 500 mg PO BID 05/18/23 Review of Systems 10-point ROS is otherwise unremarkable Gastrointestinal: Abdominal Pain <Jus Munson - Last Filed: 05/18/23 02:43> Physical Examination - Physical Exam General: Alert, In no apparent distress, Oriented x3 HEENT: Atraumatic, PERRLA, Mucous membr. moist/pink, EOMI, Sclerae nonicteric Neck: Supple, 2+ carotid pulse no bruit, No LAD, Without JVD or thyroid abnormality Respiratory: Clear to auscultation bilaterally, Normal air movement Cardiovascular: Regular rate/rhythm, Normal S1 S2 Capillary refill: <2 Seconds Gastrointestinal: Normal bowel sounds, Tenderness (Moderate epigastric tenderness) Musculoskeletal: No tenderness Integumentary: No rashes Neurological: Normal gait, Normal speech, Normal strength at 5/5 x4 extr, Normal tone, Normal affect Lymphatics: No axilla or inguinal lymphadenopathy - Studies Laboratory Data (last 24 hrs) 05/18/23 00:00: Triglycerides > 4000 H, Cholesterol 327 H, LDL Cholesterol Direct 128, HDL Cholesterol 28 L, Cholesterol/HDL Ratio 11.68 05/17/23 22:25: Sodium 131 L, Potassium 4.0, BUN 10, Creatinine 0.97, Glucose 362 H, Total Bilirubin 0.6, AST 22, ALT 40, Alkaline Phosphatase 91, Lipase 297 H 05/17/23 22:25: WBC 10.80, Hgb 14.6, Hct 40.0, Plt Count 297 <Jus Munson - Last Filed: 05/18/23 02:43> - Studies Laboratory Data (last 24 hrs) 05/18/23 00:00: Triglycerides > 4000 H, Cholesterol 327 H, LDL Cholesterol Direct 128, HDL Cholesterol 28 L, Cholesterol/HDL Ratio 11.68 05/17/23 22:25: Sodium 131 L, Potassium 4.0, BUN 10, Creatinine 0.97, Glucose 362 H, Total Bilirubin 0.6, AST 22, ALT 40, Alkaline Phosphatase 91, Lipase 297 H 05/17/23 22:25: WBC 10.80, Hgb 14.6, Hct 40.0, Plt Count 297 <Ibrahima Sousa - Last Filed: 05/18/23 14:28> Assessment and Plan - Plan Assessment: Hypertriglyceridemia induced acute pancreatitis Diabetes mellitus type [id number] with hyperglycemia Hypertension Plan: Hypertriglyceridemia induced acute pancreatitis Patient noncompliant with medications prescribed to him after recent episode of hypertriglyceridemia induced pancreatitis at [facility] proxy 2 months ago. Counseled patient at length importance of compliance with medications. N.p.o., IVF, as needed pain medications and antiemetics. Continue insulin drip for hypertriglyceridemia, monitor triglycerides daily. BISAP score 0. Diabetes mellitus type [id number] with hyperglycemia Continue insulin drip for management of hypertriglyceridemia, hourly Accu-Cheks. A1c this morning. Hypertension Obtain and continue medications as appropriate. DVT PPX: Lovenox Code status: Full code Discharge Plan: Home Plan to discharge in: Greater than 2 days - Advance Directives Does patient have a Living Will: No Does patient have a Durable POA for Healthcare: No - Code Status/Comfort Care Code Status Assessed: Yes (Full code) Critical Care: No Time Spent Managing Pts Care (In Minutes): 55 <Jus Munson - Last Filed: 05/18/23 02:43> Physician Review: Patient Assessed, Agree with Above Assessment and Plan <Ibrahima Sousa - Last Filed: 05/18/23 14:28>
[2023-05-18] MEDS ORDERED: GLUCAGON 1 MG/VIAL IM PRN (02:55)
[2023-05-18] MEDS ORDERED: D50W 25 GM/50 ML SYRINGE IV PRN (02:55)
[2023-05-18] MEDS ORDERED: ONDANSETRON 4 MG/2 ML VIAL IV PRN (02:55)
[2023-05-18] MEDS ORDERED: D10W 125 ML IV PRN (03:05)
[2023-05-18] MEDS: Ringers Lactate 1,000 ML IV SCH ×4 (03:37→21:15)
[2023-05-18 03:48] VITALS: O2SAT 99
[2023-05-18 06:08] LABS: LDL, Direct 135 mg/dL (100-129)
[2023-05-18 06:33] LABS: Thyroid Stimulating Hormone 3.76 uIU/mL (0.358-3.740)
[2023-05-18] MEDS: ENOXAPARIN 40 MG/0.4 ML SQ SCH (08:59)
[2023-05-18 09:28] LABS: Phosphorus 2.9 mg/dL (2.5-4.9)
[2023-05-18 09:29] LABS: Magnesium 2.2 mg/dL (1.6-2.4); Potassium 3.7 mEq/L (3.5-5.1)
[2023-05-18] MEDS ORDERED: Ringers Lactate 1,000 ML IV SCH (09:35)
[2023-05-18] MEDS: D5 0.45 NS 1,000 ML IV SCH ×2 (11:19→18:07)
[2023-05-18] MEDS: MORPHINE 4 MG/ML SYR IV PRN ×3 (11:25→19:31)
[2023-05-18 13:43] LABS: Phosphorus 3.1 mg/dL (2.5-4.9)
[2023-05-18 13:44] LABS: Potassium 3.7 mEq/L (3.5-5.1)
--- NOTE | 2023-05-18 14:15 | RAD REPORT ---
EXAM DESCRIPTION: CT - Abdomen Pelvis W Contrast - 05/18/2023 5:55 am CLINICAL HISTORY: The patient is 48 years old and is Male; UPPER ABD PAIN, HX OF PANCREATITIS TECHNIQUE: Axial computed tomography images of the abdomen and pelvis with intravenous contrast. S agittal and coronal reformatted images were created and reviewed. This CT exam was performed using one or more of the following dose reduction techniques: automated exposure control, adjustment of t he mA and/or kV according to patient size, and/or use of iterative reconstruction technique. COMPARISON: CT of the abdomen and pelvis May 26, 2019. FINDINGS: LUNG BASES: Unremarkable. No mass. No consolidation. ABDOMEN: LIVER: The liver is enlarged and diffusely fatty. GALLBLADDER AND BILE DUCTS: No calcified stones. No ductal dilation. PANCREAS: Peripancreatic fluid and inflammation is present. The pancreas enhances uniformly. SPLEEN: Unremarkable. ADRENALS: Unremarkable. No mass. KIDNEYS AND URETERS: Punctate right intrarenal calcification is present. The kidneys enhance symm etrically. There is no hydronephrosis or hydroureter of either kidney. No obstructing renal or ureter al calculus is seen. STOMACH AND BOWEL: The stomach is distended with food contents and air. The small bowel is normal in caliber. Stool is present throughout colon. A few scattered colonic diverticula are noted without surrounding inflammation. PELVIS: APPENDIX: The appendix is normal in caliber without surrounding inflammation. BLADDER: The bladder is well distended. REPRODUCTIVE: Unremarkable as visualized. ABDOMEN and PELVIS: INTRAPERITONEAL SPACE: Unremarkable. No free air. No significant fluid collection. BONES/JOINTS: No acute fracture. SOFT TISSUES: The soft tissues are normal. VASCULATURE: Unremarkable. No abdominal aortic aneurysm. LYMPH NODES: Unremarkable. No enlarged lymph nodes. IMPRESSION: Findings consistent with acute pancreatitis. Electronically signed by: Aide Deluca MD 05/18/2023 12:59 AM CDT Due to temporary technical issues with the PACS/Fluency reporting system, reports are being signed by the in house radiologists without review as a courtesy to insure prompt reporting. The interpreting radiologist is fully responsible for the content of the report.
[2023-05-18] MEDS: INSULIN -REGULAR HUMAN 100 UNIT in NA CHLORIDE 0.9% 100 ML IV SCH (15:48)
[2023-05-18 17:26] LABS: Phosphorus 2.9 mg/dL (2.5-4.9)
[2023-05-18 17:28] LABS: Magnesium 2.1 mg/dL (1.6-2.4); Potassium 3.5 mEq/L (3.5-5.1)
[2023-05-18 21:03] LABS: Phosphorus 2.8 mg/dL (2.5-4.9)
[2023-05-18 21:05] LABS: Potassium 4.2 mEq/L (3.5-5.1)
[2023-05-19] MEDS: D5 0.45 NS 1,000 ML IV SCH ×4 (00:13→20:28)
[2023-05-19 01:11] LABS: Phosphorus 3.2 mg/dL (2.5-4.9)
[2023-05-19 06:04] LABS: Magnesium 2.1 mg/dL (1.6-2.4); Potassium 3.5 mEq/L (3.5-5.1)
[2023-05-19] MEDS: ENOXAPARIN 40 MG/0.4 ML SQ SCH (07:58)
[2023-05-19] MEDS: INSULIN -REGULAR HUMAN 100 UNIT in NA CHLORIDE 0.9% 100 ML IV SCH (09:15)
[2023-05-19 11:53] LABS: Potassium 3.3 mEq/L (3.5-5.1)
[2023-05-19] MEDS: MORPHINE 4 MG/ML SYR IV PRN ×2 (13:30→22:45)
--- NOTE | 2023-05-19 13:51 | P.PN ---
Subjective Date of Service: 05/19/23 Chief Complaint: Acute pancreatitis No acute events overnight. He reports that his abdominal pain has improved compared to yesterday. He denies any nausea or vomiting. He denies any chest pain, palpitations, or shortness of breath. Review of Systems 10-point ROS is otherwise unremarkable Gastrointestinal: Abdominal Pain Physical Examination - Vital Signs Temperature: 98.8 F Blood Pressure: 133/87 Pulse: 94 Respirations: 16 Pulse Ox (%): 96 - Physical Exam General: Alert, In no apparent distress, Oriented x3 HEENT: Atraumatic, Mucous membr. moist/pink, Sclerae nonicteric Neck: JVD not distended Respiratory: Clear to auscultation bilaterally, Normal air movement Cardiovascular: No edema, Regular rate/rhythm, Normal S1 S2, No gallops, No rubs, No murmurs Gastrointestinal: Normal bowel sounds, Soft and benign, Non-distended, No rebound, No guarding, Tenderness (mid-epigastric) Musculoskeletal: No clubbing Integumentary: No rashes Neurological: Normal speech, Normal affect Assessment And Plan - Plan # Acute Hypertriglyceridemia-Induced Pancreatitis - Evaluation thus far: - Denies alcohol use - S/P cholecystectomy - Lipase = 297 - Initial triglyceride > 4000 - CT abdomen/pelvis = "findings consistent with acute pancreatitis" - Management plan: - Continue insulin drip - Monitor triglyceride levels and BMP while on drip - Once levels improve, plan to transition to PO fenofibrate + Vascepa - D5W-1/2 NS @ 150 mL/hr while on insulin drip - NPO - once pain and triglyceride levels improve, plan to re-introduce diet gradually - PRN pain control # Hyperglycemia in Type II Diabetes Mellitus - improved - Hgb A1c = 10.1 % - Currently on insulin drip for hypertriglyceridemia - Plan to switch to SQ insulin once off of insulin drip - Hold home metformin, glipizide, empagliflozin while NPO # Hypothyroidism - Hold home levothyroxine while NPO # Gout - Hold home allopurinol while NPO Ibrahima Sousa M.D.
[2023-05-19] MEDS ORDERED: POTASSIUM CL SA 10 MEQ TAB PO ONE (14:45)
[2023-05-19] MEDS ORDERED: POTASSIUM CL 40 MEQ in NA CHLORIDE 0.9% 500 ML IV SCH (15:00)
[2023-05-19 17:14] LABS: Potassium 3.5 mEq/L (3.5-5.1)
[2023-05-19] MEDS: FENOFIBRATE 160 MG TAB PO SCH (17:34)
[2023-05-19] MEDS: icosapent ethyL 1 GM CAP PO SCH (20:28)
[2023-05-19 21:19] LABS: Potassium 3.4 mEq/L (3.5-5.1)
[2023-05-19] MEDS: KCL 20 MEQ/100 mL IVPB 20 MEQ/100 ML BAG IV SCH (22:45)
[2023-05-20] MEDS: KCL 20 MEQ/100 mL IVPB 20 MEQ/100 ML BAG IV SCH (01:00)
[2023-05-20] MEDS: INSULIN -REGULAR HUMAN 100 UNIT in NA CHLORIDE 0.9% 100 ML IV SCH (02:40)
[2023-05-20] MEDS: D5 0.45 NS 1,000 ML IV SCH (02:55)
[2023-05-20 05:40] LABS: Phosphorus 3.1 mg/dL (2.5-4.9)
[2023-05-20 05:49] LABS: Magnesium 2.1 mg/dL (1.6-2.4); Potassium 3.7 mEq/L (3.5-5.1)
[2023-05-20 06:36] VITALS: BMI 30.1
[2023-05-20] MEDS: icosapent ethyL 1 GM CAP PO SCH ×2 (07:44→20:50)
[2023-05-20] MEDS: FENOFIBRATE 160 MG TAB PO SCH (07:44)
[2023-05-20] MEDS: ENOXAPARIN 40 MG/0.4 ML SQ SCH (07:44)
[2023-05-20] MEDS: Ringers Lactate 1,000 ML IV SCH ×2 (09:26→22:55)
--- NOTE | 2023-05-20 15:25 | P.PN ---
Subjective Date of Service: 05/20/23 Chief Complaint: Acute pancreatitis No acute events overnight. He states that his abdominal pain has improved significantly, currently graded a 2/10 in severity. He has been weaned off of an insulin drip and was started on fenofibrate and Vascepa. He was able to tolerate a clear liquid diet and would like to advance to a full liquid today. His triglyceride level has improved to 438. Will downgrade out of ICU to Med/Surg status. He denies any chest pain, palpitations, shortness of breath, nausea, or vomiting. Review of Systems 10-point ROS is otherwise unremarkable Gastrointestinal: Abdominal Pain Physical Examination - Vital Signs Temperature: 97.0 F Blood Pressure: 138/87 Pulse: 93 Respirations: 14 Pulse Ox (%): 94 Assessment And Plan - Plan - Physical Exam General: Alert, In no apparent distress, Oriented x3 HEENT: Atraumatic, Mucous membr. moist/pink, Sclerae nonicteric Neck: JVD not distended Respiratory: Clear to auscultation bilaterally, Normal air movement Cardiovascular: No edema, Regular rate/rhythm, No murmurs Gastrointestinal: Normal bowel sounds, Soft, Non-distended, No rebound, No guarding, No tenderness (mild epigastric) Musculoskeletal: No clubbing Integumentary: No rashes Neurological: Normal speech, Normal affect # Acute Hypertriglyceridemia-Induced Pancreatitis - Evaluation thus far: - Denies alcohol use - S/P cholecystectomy - Lipase = 297 - Initial triglyceride > 4000 - CT abdomen/pelvis = "findings consistent with acute pancreatitis" - Management plan: - Discontinue insulin drip - Started fenofibrate + Vascepa - Switched fluids to Lactated Ringers' @ 75 mL/hr - Started clear liquid diet - advance as tolerated - PRN pain control - Downgrade to Med/Surg # Hyperglycemia in Type II Diabetes Mellitus - improved - Hgb A1c = 10.1 % - Switch insulin drip to SQ insulin - Hold home metformin, glipizide, empagliflozin # Hypothyroidism - Continue home levothyroxine # Gout - Continue home allopurinol Ibrahima Sousa M.D.
[2023-05-20] MEDS ORDERED: D50W 25 GM/50 ML SYRINGE IV PRN (15:30)
[2023-05-20] MEDS: INSULIN GLARGINE 100 UNIT/ML SQ SCH (16:18)
[2023-05-20] MEDS: INSULIN -REGULAR HUMAN 50 UNIT/0.5 ML ML SQ SCH ×2 (16:19→20:49)
[2023-05-21 05:41] LABS: Potassium 3.9 mEq/L (3.5-5.1)
[2023-05-21] MEDS ORDERED: LEVOTHYROXINE SOD 0.112 MG TAB PO SCH (06:30)
[2023-05-21 08:26] VITALS: BP 135/94; TEMP 98.2
--- NOTE | 2023-05-21 08:30 | P.DS ---
Admission Date: 05/18/23 Discharge Date: 05/21/23 Primary Care Provider: Mony Disposition: ROUTINE DISCHARGE Discharge Condition: GOOD Reason for Admission: Acute pancreatitis Hospital Course: DIAGNOSES: # Acute Hypertriglyceridemia-Induced Pancreatitis # Hyperglycemia in Type II Diabetes Mellitus - improved # Non-Alcoholic Fatty Liver Disease # Hypothyroidism # Gout HOSPITAL COURSE: Mr. Vasyl Cope is a 48 year old male with a past medical history significant for type 2 diabetes mellitus, hypothyroidism, and gout who was admitted to the [facility] on 05/18/2023 for abdominal pain. He was admitted to the Medicine service. Upon further evaluation, he was found to have a triglyceride level > 4,000. His CT abdomen/pelvis revealed, "findings consistent with acute pancreatitis." He was admitted to the intensive care unit and started on an insulin drip. He reported that he has had a prior episode of hypertriglyceridemia-induced pancreatitis and he endorsed medication noncompliance. He has prescriptions for fenofibrate and Vascepa, and reports that he does not take these medications. Over the course of his hospitalization, his insulin drip was titrated and his triglyceride levels improved. His diet was gradually re-introduced and advanced. He reported complete resolution of his abdominal pain. In order to help manage his hypertriglyceridemia at home, his home glipizide and dapagliflozin were discontinued and he was started on insulin. He counseled extensively on the importance of medication compliance, which he agreed to do. This morning, he stated that he felt significantly better and would like to be discharged home. On 05/21/2023, he was seen on morning rounds and deemed medically stable for discharge. He was discharged with instructions to schedule follow-up appointments with his PCP (Dr. Sykes). He was provided a prescription for insulin glargine. He was advised to check his blood glucose levels at home and to keep them in a journal. He was advised to bring this journal to his PCP appointment for further medication adjustments. He was given the opportunity to ask questions and reported no further questions. Furthermore, all questions were answered to the best of my ability. A copy of this discharge summary will be sent to the above providers to facilitate continuity of care. Today, I personally spent 25 minutes on his case, of which greater than 50% of the time was spent in patient education, counseling, and coordination of care as described above. - Physical Exam General: Alert, In no apparent distress, Oriented x3 HEENT: Atraumatic, Mucous membr. moist/pink, Sclerae nonicteric Neck: JVD not distended Respiratory: Clear to auscultation bilaterally, Normal air movement Cardiovascular: No edema, Regular rate/rhythm, No murmurs Gastrointestinal: Normal bowel sounds, Soft, Non-distended, No tenderness Musculoskeletal: No clubbing Integumentary: No rashes Neurological: Normal speech, Normal affect Vital Signs/Physical Exam: Temp Pulse Resp BP Pulse Ox 98.2 F 84 15 135/94 H 95 05/21/23 08:00 05/21/23 08:00 05/21/23 08:00 05/21/23 08:00 05/20/23 21:00 Laboratory Data at Discharge: WBC 10.80 thou/uL (4.3-10.9) 05/17/23 22:25 Hgb 14.6 g/dL (13.6-17.9) 05/17/23 22:25 Hct 40.0 % (39.6-49.0) 05/17/23 22:25 Plt Count 297 thou/uL (152-406) 05/17/23 22:25 Sodium 134 mEq/L (136-145) L 05/21/23 05:03 Potassium 3.9 mEq/L (3.5-5.1) 05/21/23 05:03 BUN 5 mg/dL (7-18) L 05/21/23 05:03 Creatinine 0.91 mg/dL (0.70-1.30) 05/21/23 05:03 Glucose 259 mg/dL (74-106) H 05/21/23 05:03 Phosphorus 3.1 mg/dL (2.5-4.9) 05/20/23 04:46 Magnesium 2.0 mg/dL (1.6-2.4) 05/21/23 05:03 Total Bilirubin 0.6 mg/dL (0.2-1.0) 05/17/23 22:25 AST 22 U/L (15-37) 05/17/23 22:25 ALT 40 U/L (16-61) 05/17/23 22:25 Alkaline Phosphatase 91 U/L (45-117) 05/17/23 22:25 Triglycerides 744 mg/dL (<150) H 05/21/23 05:03 Cholesterol 327 mg/dL (<200) H 05/18/23 00:00 LDL Cholesterol Direct Cancelled 05/18/23 12:06 HDL Cholesterol 28 mg/dL (40-60) L 05/18/23 00:00 Cholesterol/HDL Ratio 11.68 05/18/23 00:00 Lipase 45 U/L (13-75) 05/21/23 05:03 Home Medications: Allopurinol 100 mg PO DAILY 05/18/23 Atorvastatin Calcium 40 mg PO DAILY 05/18/23 Colchicine 0.6 mg PO BID 05/18/23 Cyclobenzaprine [Flexeril*] 10 mg PO BEDTIME 05/18/23 Fenofibrate 160 mg PO DAILY 05/18/23 Gabapentin 300 mg PO BID 05/18/23 Icosapent Ethyl [Vascepa] 1 gm PO BID 05/18/23 Levothyroxine [Synthroid*] 0.112 mg PO DAILY 05/18/23 Metformin ER [Glucophage ER*] 500 mg PO BID 05/18/23 Insulin Glargine,Hum.rec.anlog [Insulin Glargine Solostar] 5 unit SQ DAILY #2 ml 05/21/23 New Medications: Insulin Glargine,Hum.rec.anlog [Insulin Glargine Solostar] 5 unit SQ DAILY #2 ml Physician Discharge Instructions: 1. Please call and schedule a follow-up appointment with your PCP (Dr. Sykes) in 3-5 days - You have been started on insulin to help with your diabetes as well as your high triglyceride levels - Please continue your metformin, but please stop taking your glipizide and dapagliflozin - Please measure your sugar levels four times per day (3 times before meals and once at night) - please maintain a journal of your sugar numbers and bring this to your PCP appointment for dose adjustments in your insulin Diet: ADA Activity: Ad fer Followup: Erin Sykes MD [OUTSIDE PHYSICIAN] - Time spent managing pt's care (in minutes): 25
[2023-05-21] MEDS: INSULIN -REGULAR HUMAN 50 UNIT/0.5 ML ML SQ SCH (08:54)
[2023-05-21] MEDS: INSULIN GLARGINE 100 UNIT/ML SQ SCH (08:54)
[2023-05-21] MEDS: ENOXAPARIN 40 MG/0.4 ML SQ SCH (08:54)
[2023-05-21] MEDS: FENOFIBRATE 160 MG TAB PO SCH (08:55)
[2023-05-21] MEDS: icosapent ethyL 1 GM CAP PO SCH (08:55)
[2023-05-21] MEDS ORDERED: allopurinoL 100 MG TAB PO SCH (09:00)
== END 2023-05-21 09:55 | disposition home or self-care (01) | DRG 440 ==
LOC: ER 22:03 → ERHOLD 05-18 02:14 → 3RD-ICU 05-18 03:07
PROVIDERS: ADMIT Internal Medicine; ATTEND Internal Medicine
DX: K85.90 Acute pancreatitis without necrosis or infection, unspecified (principal); I10 Essential (primary) hypertension; E11.65 Type 2 diabetes mellitus with hyperglycemia; E03.9 Hypothyroidism, unspecified; M10.9 Gout, unspecified; E78.1 Pure hyperglyceridemia; K76.0 Fatty (change of) liver, not elsewhere classified; E78.00 Pure hypercholesterolemia, unspecified; T46.6X6A Underdosing of antihyperlipidemic and antiarteriosclerotic drugs, initial encounter; Z79.84 Long term (current) use of oral hypoglycemic drugs; Z79.4 Long term (current) use of insulin; Z90.49 Acquired absence of other specified parts of digestive tract; Z87.891 Personal history of nicotine dependence; Z91.128 Patient's intentional underdosing of medication regimen for other reason; Z91.148 Patient's other noncompliance with medication regimen for other reason; Z79.890 Hormone replacement therapy; Z79.899 Other long term (current) drug therapy
CPT/HCPCS: 36415; 74177; 80048; 80053; 80061; 82947; 83036; 83690; 83735; 84100; 84439; 84443; 84478; 85025; 99285; J1650; J1815; J2405; J3480; J7040; J7120; J7799; Q9967

== ENCOUNTER 2024-01-10 06:37 | Inpatient (IN) | payer BC, SELFPAY ==
[2024-01-10 07:25] LABS: Absolute Lymphocytes (CBC) 2.1 K/uL (0.7-4.9); Hematocrit 38.6 % (39.6-49.0); Lymphocytes % 31.1 % (15.3-44.8); MCV 84.3 fL (80-100); MPV 7.4 fL (7.6-11.3); Platelets 271 thou/uL (152-406); RBC Red Blood Cell Count 4.58 M/uL (4.33-5.43)
[2024-01-10] MEDS ORDERED: KETOROLAC 30 MG/ML INJ ONE (07:25)
[2024-01-10] MEDS ORDERED: ONDANSETRON 4 MG/2 ML VIAL ONE (07:25)
[2024-01-10] MEDS ORDERED: METHYLPREDNISOLONE 125 MG INJ ONE (07:25)
[2024-01-10] MEDS ORDERED: FAMOTIDINE 20 MG/2 ML VIAL IV ONE (07:26)
[2024-01-10] MEDS ORDERED: MORPHINE 2 MG/ML SYR ONE (07:26)
[2024-01-10 07:32] LABS: Protime INR 1.03
[2024-01-10 07:50] LABS: HDL Cholesterol 21 mg/dL (40-60)
[2024-01-10 07:52] LABS: Specific Gravity 1.024 (1.005-1.030); Urine Bacteria None Seen /HPF (<20); Urine Bilirubin NEGATIVE (Negative); Urine Blood Negative (Negative); Urine Clarity Clear (Clear); Urine Color Colorless (Yellow); Urine Glucose 4+ (Over) (Negative); Urine Mucus Slight /HPF (None Seen); Urine Protein NEGATIVE (Negative); Urine RBC <5 /HPF (None Seen); Urine Urobilinogen Normal (Normal); Urine pH 5.5 (5.0-7.0)
[2024-01-10 08:01] LABS: LDL, Direct 75 mg/dL (100-129)
--- NOTE | 2024-01-10 08:39 | RAD REPORT ---
EXAM DESCRIPTION: CT - Abdomen Pelvis W Contrast - 01/10/2024 8:19 am CLINICAL HISTORY: ABD PAIN COMPARISON: Abdomen Pelvis W Contrast dated 05/18/2023 TECHNIQUE: Thin cut axial CT imaging of the abdomen and pelvis was performed following intravenous a dministration of 100 mL Isovue 300. Multiplanar reformats were generated and reviewed. All CT scans are performed using dose optimization technique as appropriate and may include automated exposure control or mA/KV adjustment according to patient size. FINDINGS: No suspicious findings in the lung bases. The liver demonstrates diffuse parenchymal hypoattenuation suggesting steatosis. Adrenal glands and p ancreas show no suspicious findings. Splenomegaly, spleen measuring 15.2 cm in long axis, stable. Gal lbladder was surgically removed. Symmetric renal function is seen with no hydronephrosis or suspicious renal mass. 2 mm right upper to midpole nonobstructing calculus. No dilated bowel loops or bowel wall thickening. No free air, free fluid or inflammatory stranding. C olonic diverticulosis. No hernia, mass or bulky lymphadenopathy. The urinary bladder is without signi ficant finding. No suspicious bony findings. IMPRESSION: Nonobstructing right renal upper to mid pole 2 mm calculus. No other acute intra-abdominal process. Colonic diverticulosis. Splenomegaly.
--- NOTE | 2024-01-10 08:45 | ER ---
Nurse's Notes [facility] Name: Vasyl Cope Age: 48 yrs Sex: Male : 1975 Arrival Date: 01/10/2024 Time: 06:37 Bed 7 Private MD: Diagnosis: Acute pancreatitis without necrosis or infection, unspecified;Hyperlipidemia, unspecified;Abdominal pain, unspecified Presentation: 01/10 06:51 Chief complaint: Patient states: I think my pancreatitis is flaring back up. The pain jb4 started yesterday in my left upper abdomen. It feels the way it did in the past. I am also having left knee pain. Coronavirus screen: At this time, the client does not indicate any symptoms associated with coronavirus-19. Ebola Screen: No symptoms or risks identified at this time. Initial Sepsis Screen: Does the patient meet any 2 criteria? HR > 90 bpm. Yes Does the patient have a suspected source of infection? Yes: Acute abdominal pain. Risk Assessment: Do you want to hurt yourself or someone else? Patient reports no desire to harm self or others. Onset of symptoms was January 09, 2024. Transition of care: patient was not received from another setting of care. 06:51 Method Of Arrival: Ambulatory jb4 06:51 Acuity: BRENDAN 3 jb4 Historical: - Allergies: 06:53 No Known Allergies; jb4 - PMHx: 06:53 Diabetes - NIDDM; Hypertension; High Cholesterol; jb4 - PSHx: 06:53 BELA knee; Choley; jb4 - Immunization history:: Adult Immunizations up to date, Last tetanus immunization: up to date. - Social history:: Smoking status: Patient/guardian denies using tobacco, the patient reports quitting approximately 11 years ago, Patient uses alcohol, but reports only rare drinking. Screenin:02 [facility] ED Fall Risk Assessment (Adult) History of falling in the last 3 months, rs5 including since admission No falls in past 3 months (0 pts) Confusion or Disorientation No (0 pts) Intoxicated or Sedated No (0 pts) Impaired Gait No (0 pts) Mobility Assist Device Used No (0 pt) Altered Elimination No (0 pt) Score/Fall Risk Level 0 - 2 = Low Risk Oriented to surroundings, Maintained a safe environment. 07:02 Abuse screen: Denies threats or abuse. Nutritional screening: No deficits noted. rs5 Tuberculosis screening: No symptoms or risk factors identified. Assessment: 07:01 General: Appears in no apparent distress. uncomfortable, Behavior is cooperative. Pain: rs5 Complains of pain in left upper quadrant Pain does not radiate. Pain currently is 9 out of 10 on a pain scale. Quality of pain is described as aching, Pain began 2-3 days ago. Is continuous. Neuro: Level of Consciousness is awake, alert, obeys commands, Oriented to person, place, time, situation. Cardiovascular: Patient's skin is warm and dry. Rhythm is regular. Respiratory: Respiratory effort is even, unlabored, Respiratory pattern is regular, symmetrical. GI: Bowel sounds present X 4 quads. Abdomen is tender to palpation in left upper quadrant. : No signs and/or symptoms were reported regarding the genitourinary system. EENT: No signs and/or symptoms were reported regarding the EENT system. Derm: Skin is intact, Skin is pink, warm \\T\\ dry. Musculoskeletal: Range of motion: intact in all extremities. 07:01 Pain: Complains of pain in left knee pain Pain currently is 3 out of 10 on a pain rs5 scale. Quality of pain is described as aching. 07:01 Reassessment: Pt states "I've been having the knee pain for a while now, doctor says rs5 it's arthritis". 08:04 Reassessment: Patient and/or family updated on plan of care and expected duration. Pain rs5 level reassessed. Patient is alert, oriented x 3, equal unlabored respirations, skin warm/dry/pink. Patient states feeling better. Patient states symptoms have improved. Pain: Complains of pain in left upper quadrant Pain currently is 2 out of 10 on a pain scale. Quality of pain is described as aching, Is continuous. 08:23 Reassessment: pt back from CT scan. rs5 08:30 Reassessment: Pt voided 700 ml clear yellow urine in urinal. Urinal emptied and new rs5 urinal provided. 08:47 Reassessment: lab called to report a blood sugar of 421, provider notified. rs5 08:55 Reassessment: insulin drip [facility]. rs5 09:14 Reassessment: No changes from previously documented assessment. rs5 09:25 Reassessment: To bedside for insulin drip adm rate started at 0.05 units/kg/hr per MD rs5 verbal orders. 10:40 Reassessment: Patient and/or family updated on plan of care and expected duration. Pain rs5 level reassessed. Patient is alert, oriented x 3, equal unlabored respirations, skin warm/dry/pink. Vital Signs: 06:51 BP 181 / 108; Pulse 96; Resp 16; Temp 98.1(TE); Pulse Ox 97% on R/A; Weight 99.79 kg jb4 (R); Height 5 ft. 10 in. (R); Pain 9/10; 07:01 BP 167 / 102; Pulse 86; Resp 17; Pulse Ox 99% on R/A; rs5 08:25 BP 161 / 100; Pulse 85; Resp 17; Temp 98; Pulse Ox 99% on R/A; rs5 10:45 BP 175 / 104; Pulse 81; Resp 18; Pulse Ox 99% on R/A; rs5 06:51 Body Mass Index 31.57 (99.79 kg, 177.8 cm) jb4 06:51 Pain Scale: Adult jb4 ED Course: 06:41 Patient arrived in ED. gm2 06:46 Shmuel Pringle MD is Attending Physician. sp4 06:51 Toni Snow, RN is Primary Nurse. jb4 06:53 Triage completed. jb4 06:53 Arm band placed on right wrist. jb4 07:01 Attending Physician role handed off by Shmuel Pringle MD rn 07:01 Kolby Ricks MD is Attending Physician. rn 07:02 Patient has correct armband on for positive identification. Bed in low position. Call rs5 light in reach. Side rails up X2. 07:02 No provider procedures requiring assistance completed. rs5 07:04 Luis Whittington, LISA is Primary Nurse. rs5 07:16 Initial lab(s) drawn, by me, sent to lab. Inserted saline lock: 20 gauge in right jb4 forearm, using aseptic technique. Blood collected. 08:21 CT Abd/Pelvis - IV Contrast Only In Process Unspecified. EDMS 08:43 Kamilah Cotto MD is Hospitalizing Provider. rn 10:28 Radiology exam delayed due to IV insertion attempt and/or patient not having lc6 appropriate IV at this time. us delayed: pt having iv drip and can not be unhooked at this time, per technology and engineering teacher. 11:01 Patient admitted, IV remains in place. rs5 Administered Medications: 07:39 Drug: NS 0.9% IV 1000 ml IV at 1 bolus Per protocol; 1000 mL bolus Route: IV; Rate: 1 rs5 bolus; Site: right antecubital; 08:01 Follow up: Response: No adverse reaction rs5 07:39 Drug: Famotidine IVP 20 mg IVP once; dilute with 10 mL 0.9% NaCl; give over 2 minutes rs5 Route: IVP; Site: right antecubital; 08:01 Follow up: Response: No adverse reaction rs5 07:39 Drug: TORadol - Ketorolac IVP 30 mg IVP once Route: IVP; Site: right antecubital; rs5 08:01 Follow up: Response: No adverse reaction; Pain is decreased rs5 07:39 Drug: Ondansetron IVP 4 mg IVP once; over 2 minutes Route: IVP; Site: right antecubital;rs5 08:01 Follow up: Response: No adverse reaction rs5 07:39 Drug: morphine IVP or IV 6 mg IVP once over 4 mins Route: IVP; Infused Over: 4 mins; rs5 Site: right antecubital; 08:01 Follow up: Response: No adverse reaction rs5 07:39 Drug: MethylPrednisoLONE IVP 125 mg IVP once Route: IVP; Site: right antecubital; rs5 08:01 Follow up: Response: No adverse reaction rs5 08:54 Drug: NS 0.9% IV 1000 ml IV at 1000 ml once Route: IV; Rate: 1000 ml; Site: right rs5 antecubital; 09:14 Follow up: Response: No adverse reaction rs5 09:25 Drug: Insulin Drip - (Insulin Regular Human IVP 100 units, NS 0.9% IV 100 ml) IV at rs5 calculated rate continuous; Standard concentration 1unit/ml; Dose for DKA is 0.1 units/kg/hr {Co-Signature: ll1 (Deonna Espinosa RN).} Route: IV; Rate: calculated rate; Site: right antecubital; Medication: 08:24 VIS not applicable for this client. rs5 Outcome: 08:44 Decision to Hospitalize by Provider. rn 11:01 Admitted to ER Hold. Please see [facility] for further documentation. rs5 11:01 Condition: stable 11:01 Instructed on the need for admit, Demonstrated understanding of instructions, 18:03 Patient left the ED. rs5 Signatures: Dispatcher [employer] EDMS Kolby Ricks MD MD rn Bryson, James, RN RN jb4 Luis Whittington RN RN rs5 Shmuel Pringle MD MD sp4 Umang Schneider 6 Ivanna Michelle 2 Deonna Espinosa RN ll1 Corrections: (The following items were deleted from the chart) 08:23 07:01 Pain: Complains of pain in right knee pain Pain currently is 3 out of 10 on a rs5 pain scale. Quality of pain is described as aching, rs5 09:56 09:55 Insulin Drip - (Insulin Regular Human IVP 100 units, NS 0.9% IV 100 ml) IV at rs5 calculated rate in right antecubital rs5
--- NOTE | 2024-01-10 08:45 | EDPHYS ---
Physician Documentation [facility] Name: Vasyl Cope Age: 48 yrs Sex: Male : 1975 Arrival Date: 01/10/2024 Time: 06:37 Bed 7 Private MD: ED Physician Kolby Ricks HPI: 01/10 06:46 This 48 yrs old Male presents to ER via Unassigned with complaints of sp4 Abdominal Pain, Leg Pain. Historical: - Allergies: 06:53 No Known Allergies; jb4 - PMHx: 06:53 Diabetes - NIDDM; Hypertension; High Cholesterol; jb4 - PSHx: 06:53 BELA knee; Choley; jb4 - Immunization history:: Adult Immunizations up to date, Last tetanus immunization: up to date. - Social history:: Smoking status: Patient/guardian denies using tobacco, the patient reports quitting approximately 11 years ago, Patient uses alcohol, but reports only rare drinking. ROS: 06:56 Constitutional: Negative for fever, chills, and weight loss, Positive abd pain and sp4 vomiting Eyes: Negative for injury, pain, redness, and discharge, 06:56 All other systems are negative, Exam: 06:56 Constitutional: This is a well developed, well nourished patient who is awake, alert, sp4 and in no acute distress. Head/Face: Normocephalic, atraumatic. Eyes: Pupils equal round and reactive to light, extra-ocular motions intact. Lids and lashes normal. Conjunctiva and sclera are not injected. Cornea within normal limits. Periorbital areas with no swelling, redness, or edema. ENT: Nares patent. No nasal discharge, no septal abnormalities noted. Tympanic membranes are normal and external auditory canals are clear. Oropharynx with no redness, swelling, or masses, exudates, or evidence of obstruction, uvula midline. Mucous membranes moist. Neck: Trachea midline, no thyromegaly or masses palpated, and no cervical lymphadenopathy. Supple, full range of motion without nuchal rigidity, or vertebral point tenderness. Chest/axilla: Normal chest wall appearance and motion. Nontender with no deformity. No lesions are appreciated. Cardiovascular: Regular rate and rhythm with a normal S1 and S2. No gallops, murmurs, or rubs. Normal PMI, no JVD. No pulse deficits. Respiratory: Lungs have equal breath sounds bilaterally, clear to auscultation and percussion. No rales, rhonchi or wheezes noted. No increased work of breathing, no retractions or nasal flaring. Abdomen/GI: Soft, with normal bowel sounds. No distension or tympany. No guarding or rebound. Potitive upper abdominal tenderness without rebound Back: No spinal tenderness. No costovertebral tenderness. Skin: Warm, dry with normal turgor. Normal color with no rashes, no lesions, and no evidence of cellulitis. MS/ Extremity: Pulses equal, no cyanosis. Neurovascular intact. Full, normal range of motion. Neuro: Awake and alert, GCS 15, oriented to person, place, time, and situation. Cranial nerves II-XII grossly intact. Motor strength 5/5 in all extremities. Sensory grossly intact. Psych: Awake, alert, with orientation to person, place and time. Behavior, mood, and affect are within normal limits Vital Signs: 06:51 BP 181 / 108; Pulse 96; Resp 16; Temp 98.1(TE); Pulse Ox 97% on R/A; Weight 99.79 kg jb4 (R); Height 5 ft. 10 in. (R); Pain 9/10; 07:01 BP 167 / 102; Pulse 86; Resp 17; Pulse Ox 99% on R/A; rs5 08:25 BP 161 / 100; Pulse 85; Resp 17; Temp 98; Pulse Ox 99% on R/A; rs5 10:45 BP 175 / 104; Pulse 81; Resp 18; Pulse Ox 99% on R/A; rs5 06:51 Body Mass Index 31.57 (99.79 kg, 177.8 cm) jb4 06:51 Pain Scale: Adult jb4 MDM: 06:53 Patient medically screened. sp4 06:56 Differential diagnosis: Pancreatitis, diverticulitis . Data reviewed: vital signs, sp4 nurses notes, old medical records, lab test result(s), radiologic studies, CT scan. 07:02 Transition of care: After a detail discussion of the patient's case, care is sp4 transferred to Kolby Ricks MD. ED course: awaiting work up. 08:43 Consideration of Admission/Observation Patient was admitted/placed on observation. rn Escalation of care including admission/observation considered. Counseling: I had a detailed discussion with the patient and/or guardian regarding the historical points, exam findings, and any diagnostic results supporting the discharge/admit diagnosis, lab results, radiology results, the need for further work-up and treatment in the hospital. 01/10 06:52 Order name: CBC with Diff; Complete Time: 08:14 sp4 01/10 06:52 Order name: CMP; Complete Time: 08:58 sp4 01/10 06:52 Order name: Lipase; Complete Time: 08:58 sp4 01/10 06:52 Order name: Urinalysis w/ reflexes; Complete Time: 08:14 sp4 01/10 06:53 Order name: Hemoglobin A1c sp4 01/10 06:53 Order name: CRP; Complete Time: 08:58 sp4 01/10 06:53 Order name: Type And Screen; Complete Time: 10:03 sp4 01/10 06:53 Order name: PT-INR; Complete Time: 08:14 sp4 01/10 07:13 Order name: Lipid Profile; Complete Time: 08:14 jb4 01/10 07:54 Order name: LDL, Direct; Complete Time: 08:14 EDMS 01/10 08:38 Order name: CREATININE WHOLE BLOOD; Complete Time: 08:42 EDMS 01/10 09:17 Order name: CBC with Automated Diff EDMS 01/10 09:17 Order name: CBC with Automated Diff EDMS 01/10 09:17 Order name: CBC with Automated Diff EDMS 01/10 09:17 Order name: CBC with Automated Diff EDMS 01/10 09:17 Order name: Comprehensive Metabolic Panel EDMS 01/10 09:17 Order name: Comprehensive Metabolic Panel EDMS 01/10 09:17 Order name: Comprehensive Metabolic Panel EDMS 01/10 09:17 Order name: Comprehensive Metabolic Panel EDMS 01/10 09:17 Order name: Magnesium EDMS 01/10 09:17 Order name: Magnesium EDMS 01/10 09:17 Order name: Magnesium EDMS 01/10 09:17 Order name: Magnesium EDMS 01/10 10:37 Order name: Glucose, Ancillary Testing; Complete Time: 13:49 EDMS 01/10 11:46 Order name: Glucose, Ancillary Testing; Complete Time: 13:49 EDMS 01/10 11:48 Order name: Troponin High Sensitivity; Complete Time: 13:49 EDMS 01/10 11:58 Order name: ABO/RH no charge; Complete Time: 13:49 EDMS 01/10 13:17 Order name: Glucose, Ancillary Testing; Complete Time: 13:49 EDMS 01/10 14:08 Order name: Glucose, Ancillary Testing EDMS 01/10 15:10 Order name: Glucose, Ancillary Testing EDMS 01/10 16:10 Order name: Creatine Phosphokinase EDMS 01/10 16:24 Order name: Glucose, Ancillary Testing EDMS 01/10 06:52 Order name: CT Abd/Pelvis - IV Contrast Only; Complete Time: 08:42 sp4 01/10 13:06 Order name: US; Complete Time: 13:49 EDMS 01/10 06:52 Order name: IV Saline Lock; Complete Time: 07:39 sp4 01/10 06:52 Order name: Labs collected and sent; Complete Time: 07:39 sp4 Administered Medications: 07:39 Drug: NS 0.9% IV 1000 ml IV at 1 bolus Per protocol; 1000 mL bolus Route: IV; Rate: 1 rs5 bolus; Site: right antecubital; 08:01 Follow up: Response: No adverse reaction rs5 07:39 Drug: Famotidine IVP 20 mg IVP once; dilute with 10 mL 0.9% NaCl; give over 2 minutes rs5 Route: IVP; Site: right antecubital; 08:01 Follow up: Response: No adverse reaction rs5 07:39 Drug: TORadol - Ketorolac IVP 30 mg IVP once Route: IVP; Site: right antecubital; rs5 08:01 Follow up: Response: No adverse reaction; Pain is decreased rs5 07:39 Drug: Ondansetron IVP 4 mg IVP once; over 2 minutes Route: IVP; Site: right antecubital;rs5 08:01 Follow up: Response: No adverse reaction rs5 07:39 Drug: morphine IVP or IV 6 mg IVP once over 4 mins Route: IVP; Infused Over: 4 mins; rs5 Site: right antecubital; 08:01 Follow up: Response: No adverse reaction rs5 07:39 Drug: MethylPrednisoLONE IVP 125 mg IVP once Route: IVP; Site: right antecubital; rs5 08:01 Follow up: Response: No adverse reaction rs5 08:54 Drug: NS 0.9% IV 1000 ml IV at 1000 ml once Route: IV; Rate: 1000 ml; Site: right rs5 antecubital; 09:14 Follow up: Response: No adverse reaction rs5 09:25 Drug: Insulin Drip - (Insulin Regular Human IVP 100 units, NS 0.9% IV 100 ml) IV at rs5 calculated rate continuous; Standard concentration 1unit/ml; Dose for DKA is 0.1 units/kg/hr {Co-Signature: [email or web address] (Deonna Espinosa RN).} Route: IV; Rate: calculated rate; Site: right antecubital; Disposition Summary: 01/10/24 08:44 Hospitalization Ordered Notes: Hospitalization Status: Inpatient Admission rn Provider: Kamilah Cotto rn Condition: Stable rn Problem: an acute exacerbation rn Symptoms: have improved rn Bed/Room Type: Standard rn Location: Intensive Care Unit(01/10/24 17:03) [facility] Room Assignment: 6-(01/10/24 17:03) [facility] Diagnosis - Acute pancreatitis without necrosis or infection, unspecified rn - Hyperlipidemia, unspecified rn - Abdominal pain, unspecified rn Forms: - Medication Reconciliation Form rn - SBAR form rn - Leadership Thank You Letter rn Signatures: Dispatcher [employer] EDMS Jessy Velásquez, LEAD FURNACE OPERATOR-C LEAD FURNACE OPERATOR-Csnw Kolby Ricks MD MD rn Bryson, James, RN RN jb4 Alden Andres RN RN ja1 Luis Whittington, RN RN rs5 Shmuel Pringle MD MD sp4 Deonna Espinosa RN ll1 Corrections: (The following items were deleted from the chart) 10: 08:44 Telemetry/MedSurg (Inpatient) rn elizabet 10: 08:44 rn elizabet 17:03 10:26 [facility] ER HOLD jaMorgan ja1 17:03 10:26 ERHOLD- Morgan mcneal
[2024-01-10 08:49] LABS: Albumin 3.5 g/dL (3.4-5.0); Bilirubin Total 0.6 mg/dL (0.2-1.0); C-Reactive Protein 7.97 mg/L (<3.00); Protein, Total 6.7 g/dL (6.4-8.2)
[2024-01-10 08:50] LABS: Potassium 4.6 mEq/L (3.5-5.1)
[2024-01-10] MEDS ORDERED: NA CHLORIDE 0.9% 1,000 ML ONE ×3 (09:00→21:52)
[2024-01-10] MEDS ORDERED: NA CHLORIDE 0.9% 100 ML ONE (09:00)
[2024-01-10] MEDS ORDERED: ONDANSETRON 4 MG/2 ML VIAL IV PRN (09:02)
[2024-01-10] MEDS: NA CHLORIDE 0.9% 1,000 ML IV SCH (10:00)
--- NOTE | 2024-01-10 10:00 | P.HP ---
Certification for Inpatient Patient admitted to: Inpatient With expected LOS: >2 Midnights <Jessy Velásquez - Last Filed: 01/10/24 12:06> Patient History Date of Service: 01/10/24 Primary Care Provider: Erin Larkin Reason for admission: pancreatitis History of Present Illness: Mr. Cope is a 48 yo male with a history of DM, Hypertriglyceridemia, Pancreatitis, Neuropathy who sees Dr. Larkin in [place]. He is quite noncompliant with his medication regimen. Drinks ETOH only on occasion, consumes a poor diet, but he did stop smoking about 11 yrs ago. He has been hospitalized many times for hypertriglyceridemia pancreatitis in the past: most recently one month ago in [place]. He presented to the ED this morning with a complaint of Chest pain and shortness of breath. His subsequent workup suggests pancreatitis and his lipase was over 3000 and his blood sugar was greater than 400. He will be admitted to ICU to correct these derangements. 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, lives at home with family - Family History Father -: Heart disease Mother -: Diabetes - Social History Smoking Status: Former smoker (quit 11 yr ago) Alcohol use: No CD- Drugs: No Caffeine use: Yes Place of Residence: Home <Jessy Velásquez - Last Filed: 01/10/24 12:06> Date of Service: 01/10/24 <Kamilah Cotto - Last Filed: 01/10/24 15:03> Allergies No Known Food Allergies Allergy (Verified 05/18/23 03:42) unkown Home Medications: Allopurinol 100 mg PO DAILY 05/18/23 Atorvastatin Calcium 40 mg PO DAILY 05/18/23 Colchicine 0.6 mg PO BID 05/18/23 Cyclobenzaprine [Flexeril*] 10 mg PO BEDTIME 05/18/23 Fenofibrate 160 mg PO DAILY 05/18/23 Gabapentin 300 mg PO BID 05/18/23 Icosapent Ethyl [Vascepa] 1 gm PO BID 05/18/23 Levothyroxine [Synthroid*] 0.112 mg PO DAILY 05/18/23 Metformin ER [Glucophage ER*] 500 mg PO BID 05/18/23 Insulin Glargine,Hum.rec.anlog [Insulin Glargine Solostar] 5 unit SQ DAILY #2 ml 05/21/23 Review of Systems 10-point ROS is otherwise unremarkable General: Weakness Eyes: Unremarkable ENT: Unremarkable Respiratory: Shortness of Breath Cardiovascular: Chest Pain Gastrointestinal: Abdominal Pain Genitourinary: Unremarkable Musculoskeletal: Unremarkable Integumentary: Unremarkable Neurological: Unremarkable Lymphatics: Unremarkable <Jessy Velásquez - Last Filed: 01/10/24 12:06> Physical Examination - Vital Signs Temperature: 98 F Blood Pressure: 161/100 Pulse: 85 Respirations: 17 Pulse Ox (%): 99 - Physical Exam General: Alert, In no apparent distress, Oriented x3 HEENT: Atraumatic, Normocephalic Neck: Supple, 2+ carotid pulse no bruit Respiratory: Clear to auscultation bilaterally Cardiovascular: No edema, Normal pulses Capillary refill: <2 Seconds Gastrointestinal: Hypoactive, Hepatomegaly, Splenomegaly, Tenderness (left upper quad) Musculoskeletal: No clubbing, No swelling, Other (left lower leg numbness/burning) Integumentary: No rashes Neurological: Normal speech, Normal strength at 5/5 x4 extr Lymphatics: No axilla or inguinal lymphadenopathy External genitalia: Deferred Rectal: Deferred - Studies Laboratory Data (last 24 hrs) 01/10/24 01/10/24 01/10/24 08:12 07:11 07:11 WBC Hgb Hct Plt Count PT 11.3 INR 1.03 Sodium 134 L Potassium 4.6 BUN 15 Creatinine 1.35 H Glucose 421 H* Total Bilirubin 0.6 AST 27 ALT 39 Alkaline Phosphatase 72 Triglycerides 3246 H Cholesterol 288 H LDL Cholesterol Direct 75 L HDL Cholesterol 21 L Cholesterol/HDL Ratio 13.71 Lipase 36 01/10/24 07:11 WBC 6.90 Hgb 14.6 Hct 38.6 L Plt Count 271 PT INR Sodium Potassium BUN Creatinine Glucose Total Bilirubin AST ALT Alkaline Phosphatase Triglycerides Cholesterol LDL Cholesterol Direct HDL Cholesterol Cholesterol/HDL Ratio Lipase <Jessy Velásquez - Last Filed: 01/10/24 12:06> - Studies Laboratory Data (last 24 hrs) 01/10/24 01/10/24 01/10/24 08:12 07:11 07:11 WBC Hgb Hct Plt Count PT 11.3 INR 1.03 Sodium 134 L Potassium 4.6 BUN 15 Creatinine 1.35 H Glucose 421 H* Total Bilirubin 0.6 AST 27 ALT 39 Alkaline Phosphatase 72 Triglycerides 3246 H Cholesterol 288 H LDL Cholesterol Direct 75 L HDL Cholesterol 21 L Cholesterol/HDL Ratio 13.71 Lipase 36 01/10/24 07:11 WBC 6.90 Hgb 14.6 Hct 38.6 L Plt Count 271 PT INR Sodium Potassium BUN Creatinine Glucose Total Bilirubin AST ALT Alkaline Phosphatase Triglycerides Cholesterol LDL Cholesterol Direct HDL Cholesterol Cholesterol/HDL Ratio Lipase <KirtiYaronlex Pena - Last Filed: 01/10/24 15:03> Assessment and Plan - Plan Hypertriglyceridemia: Initiate insulin drip NS at 100ml/hr Abdominal pain with splenomegaly: NPO Morphine 4mg IV Q6h prn pain Diabetes: Insulin drip Monitor hourly FSBS When FSBS < 250mg/dL will change IVF to D5NS Monitor and replace electrolytes Hypertension: Pt denies hx of HTN, states it is only high with pain. Will treat pain and continue to monitor Noncompliance with medication regimen: Discuss with patient the risk of /disability when not sticking to health management plan and ensure pt knows and has access to all his home medications at discharge - Advance Directives Does patient have a Living Will: No Does patient have a Durable POA for Healthcare: No <Jessy Velásquez - Last Filed: 01/10/24 12:06> - Plan Pt seen and examined. 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 Pt is a 48 yo male with past medical history of Htn, DM II, and HLD who presents with abd pain and leg pain. Pt reports that his pancreatitis is flaring up. On admission, lab studies show lipase 36, WBC 6.9, Hgb 14.6, Na 134, K 4.6, Cr 1.35, triglyceride 3246, T. chol 288, and CRP 7.7. CT abd shows non-obstructing right renal upper to mid pole 2 mm calculus. Colonic diverticulosis and splenomegaly. At bedside, pt is in NAD. He complains of abd pain and left thigh pain. A/P: Hypertriglycemia: Lipase is 36. Triglyceride is 3246. CT abd shows non- obstructing right renal upper to mid pole 2 mm calculus. Colonic diverticulosis and splenomegaly. Will continue IVF, insulin drip, prn pain and keep pt NPO. Htn: Continue home med HLD: Will continue fenofibrate and insulin drip due to elevated triglyceride. Trig is 3246. T. chol is 288. . DVT ppx: SCD Code: full <Kamilah Cotto - Last Filed: 01/10/24 15:03>
--- NOTE | 2024-01-10 13:06 | RAD REPORT ---
EXAM DESCRIPTION: US - Extrem Venous W Compress Peter - 01/10/2024 12:38 pm CLINICAL HISTORY: Hyperlipidemia, with lower extremity numbness COMPARISON: None. TECHNIQUE: Real-time sonographic evaluation of the bilateral lower extremity deep venous systems was performed. FINDINGS: Normal compressibility, flow augmentation, phasic flow and spontaneous flow is identified in both the left and right lower extremity deep venous systems. No intraluminal filling defects seen. IMPRESSION: No DVT in either lower extremity.
[2024-01-10] MEDS ORDERED: MORPHINE 4 MG/ML SYR ONE (13:27)
[2024-01-10] MEDS ORDERED: PNEUMOCOCCAL VACCINE 0.5 ML IMVAC ONE (16:00)
[2024-01-10] MEDS: INSULIN -REGULAR HUMAN 100 UNIT in NA CHLORIDE 0.9% 100 ML IV SCH (19:20)
[2024-01-10] MEDS: FENOFIBRATE 160 MG TAB PO SCH (19:54)
[2024-01-10] MEDS: MORPHINE 4 MG/ML SYR IV PRN (19:58)
[2024-01-10] MEDS: ATORVASTATIN 40 MG TAB PO SCH (19:59)
[2024-01-11 01:22] VITALS: BMI 31.5
[2024-01-11 04:42] LABS: Absolute Lymphocytes (CBC) 1.8 K/uL (0.7-4.9); Hematocrit 35.3 % (39.6-49.0); Lymphocytes % 20.3 % (15.3-44.8); MCV 84.8 fL (80-100); MPV 7.4 fL (7.6-11.3); Platelets 230 thou/uL (152-406); RBC Red Blood Cell Count 4.17 M/uL (4.33-5.43)
[2024-01-11 05:17] LABS: Albumin 3.2 g/dL (3.4-5.0); Bilirubin Total 0.5 mg/dL (0.2-1.0)
[2024-01-11 05:18] LABS: Potassium 3.5 mEq/L (3.5-5.1)
[2024-01-11] MEDS ORDERED: NA CHLORIDE 0.9% 1,000 ML ONE ×2 (06:14→16:19)
[2024-01-11] MEDS: ENOXAPARIN 40 MG/0.4 ML SQ SCH (08:09)
--- NOTE | 2024-01-11 11:05 | P.PN ---
Subjective Date of Service: 01/11/24 Primary Care Provider: Erin Larkin Chief Complaint: pancreatitis Pt is resting comfortably in bed. Pt comfortably in bed. Abd pain has resolved. Pt wanst to eat. No other complaints. Trig is 961 <- 3246 Review of Systems Unremarkable General: Unremarkable Eyes: Unremarkable ENT: Unremarkable Respiratory: Unremarkable Cardiovascular: Unremarkable Gastrointestinal: Unremarkable Genitourinary: Unremarkable Musculoskeletal: Unremarkable Integumentary: Unremarkable Neurological: Unremarkable Lymphatics: Unremarkable Physical Examination - Vital Signs Temperature: 97.4 F Blood Pressure: 143/93 Pulse: 74 Respirations: 10 Pulse Ox (%): 97 - Physical Exam General: Alert, In no apparent distress, Oriented x3 HEENT: Atraumatic, Normocephalic, PERRLA Neck: Supple, 2+ carotid pulse no bruit Respiratory: Clear to auscultation bilaterally, Normal air movement Cardiovascular: No edema, Normal pulses, Regular rate/rhythm, Normal S1 S2 Capillary refill: <2 Seconds Gastrointestinal: Normal bowel sounds, Soft and benign, Non-distended Musculoskeletal: No clubbing, No swelling Integumentary: No rashes, No breakdown Neurological: Normal speech, Normal strength at 5/5 x4 extr, Normal tone, Sensation intact, Cranial nerves 3-12 intact Lymphatics: No axilla or inguinal lymphadenopathy Assessment And Plan - Plan Hypertriglyceridemia: Lipase is 36. Triglyceride is down 961<- 3246. CT abd shows non-obstructing right renal upper to mid pole 2 mm calculus. Colonic diverticulosis and splenomegaly. Will continue IVF, insulin drip, prn pain. Will start CLD. Htn: Continue home med Hypokalemia: K is 3.5. Will replete and monitor. HLD: Will continue fenofibrate and insulin drip due to elevated triglyceride. Trig is 961 <- 3246. T. chol is 288. . DVT ppx: SCD Code: full
[2024-01-11] MEDS ORDERED: POTASSIUM CL SA 10 MEQ TAB PO ONE (15:58)
[2024-01-11] MEDS: POTASSIUM CL SA 10 MEQ TAB PO ONE (16:20)
[2024-01-12] MEDS ORDERED: D5 0.9 NS 1,000 ML IV ONE (00:14)
[2024-01-12] MEDS: D5 0.9 NS 1,000 ML IV SCH (00:15)
[2024-01-12 04:27] LABS: Absolute Lymphocytes (CBC) 2.3 K/uL (0.7-4.9); Hematocrit 36.5 % (39.6-49.0); Lymphocytes % 33.6 % (15.3-44.8); MCV 84.4 fL (80-100); MPV 7.1 fL (7.6-11.3); Platelets 210 thou/uL (152-406); RBC Red Blood Cell Count 4.33 M/uL (4.33-5.43)
[2024-01-12 04:44] LABS: Albumin 3.2 g/dL (3.4-5.0); Bilirubin Total 0.4 mg/dL (0.2-1.0); Potassium 3.2 mEq/L (3.5-5.1); Protein, Total 6.1 g/dL (6.4-8.2)
[2024-01-12] MEDS: POTASSIUM CL SA 10 MEQ TAB PO ONE ×2 (06:33→13:53)
--- NOTE | 2024-01-12 10:43 | P.PN ---
Subjective Date of Service: 01/12/24 Primary Care Provider: Erin Larkin Chief Complaint: pancreatitis Pt is resting comfortably in bed. Abd pain has resolved. Triglyceride is 936 <- 1056 <- 961. Still getting insulin drip. No other complaints. Review of Systems Unremarkable General: Unremarkable Eyes: Unremarkable ENT: Unremarkable Respiratory: Unremarkable Cardiovascular: Unremarkable Gastrointestinal: Unremarkable Genitourinary: Unremarkable Musculoskeletal: Unremarkable Integumentary: Unremarkable Neurological: Unremarkable Lymphatics: Unremarkable Physical Examination - Vital Signs Temperature: 97.6 F Blood Pressure: 139/96 Pulse: 80 Respirations: 11 Pulse Ox (%): 97 - Physical Exam General: Alert, In no apparent distress, Oriented x3 HEENT: Atraumatic, Normocephalic Neck: Supple, 2+ carotid pulse no bruit Respiratory: Clear to auscultation bilaterally, Normal air movement Cardiovascular: No edema, Normal pulses, Regular rate/rhythm, Normal S1 S2 Capillary refill: <2 Seconds Gastrointestinal: Normal bowel sounds, Soft and benign, Non-distended Musculoskeletal: No clubbing, No swelling Integumentary: No rashes, No breakdown Neurological: Normal speech, Normal strength at 5/5 x4 extr, Normal tone, Sensation intact, Cranial nerves 3-12 intact Lymphatics: No axilla or inguinal lymphadenopathy Assessment And Plan - Plan Hypertriglyceridemia: Lipase is 36. Triglyceride is down 936 <- 1056<- 961<- 3246. CT abd shows non-obstructing right renal upper to mid pole 2 mm calculus. Colonic diverticulosis and splenomegaly. Will continue IVF, insulin drip, prn pain. Will advance to regular diet. Htn: Continue home med Hypokalemia: K is 3.2 <- 3.5. Will replete and monitor. HLD: Will continue fenofibrate and insulin drip due to elevated triglyceride. Trig is 936 <- 1056<- 961 <- 3246. T. chol is 288. . DVT ppx: SCD Code: full
[2024-01-12] MEDS ORDERED: MORPHINE 4 MG/ML SYR ONE (14:06)
[2024-01-12] MEDS ORDERED: GABAPENTIN 300 MG CAP ONE ×2 (16:31→19:41)
[2024-01-12] MEDS: GABAPENTIN 300 MG CAP PO SCH (16:36)
[2024-01-13 05:05] LABS: Absolute Lymphocytes (CBC) 2.4 K/uL (0.7-4.9); Hematocrit 37.1 % (39.6-49.0); Lymphocytes % 39.1 % (15.3-44.8); MCV 85.2 fL (80-100); MPV 7.4 fL (7.6-11.3); Platelets 233 thou/uL (152-406); RBC Red Blood Cell Count 4.35 M/uL (4.33-5.43)
[2024-01-13 05:28] LABS: Bilirubin Total 0.6 mg/dL (0.2-1.0); Protein, Total 5.9 g/dL (6.4-8.2)
[2024-01-13 05:29] LABS: Magnesium 1.9 mg/dL (1.6-2.4); Potassium 3.5 mEq/L (3.5-5.1)
[2024-01-13] MEDS ORDERED: POTASSIUM 25 MEQ EFFERV TAB ONE (09:23)
[2024-01-13] MEDS ORDERED: GABAPENTIN 300 MG CAP ONE ×2 (09:23→20:11)
[2024-01-13] MEDS ORDERED: ENOXAPARIN 40 MG/0.4 ML SQ ONE (09:24)
[2024-01-13] MEDS: POTASSIUM 25 MEQ EFFERV TAB PO ONE (09:38)
--- NOTE | 2024-01-13 09:56 | P.PN ---
Subjective Date of Service: 01/13/24 Primary Care Provider: Erin Larkin Chief Complaint: pancreatitis Pt is resting comfortably in bed. Abd pain has resolved. Triglyceride is 976<- 936 <- 1056 <- 961. Still getting insulin drip. No other complaints. Review of Systems Unremarkable General: Unremarkable Eyes: Unremarkable ENT: Unremarkable Respiratory: Unremarkable Cardiovascular: Unremarkable Gastrointestinal: Unremarkable Genitourinary: Unremarkable Musculoskeletal: Unremarkable Integumentary: Unremarkable Neurological: Unremarkable Lymphatics: Unremarkable Physical Examination - Vital Signs Temperature: 98 F Blood Pressure: 129/85 Pulse: 71 Respirations: 11 Pulse Ox (%): 97 - Physical Exam General: Alert, In no apparent distress, Oriented x3 HEENT: Atraumatic, Normocephalic Neck: Supple, 2+ carotid pulse no bruit Respiratory: Clear to auscultation bilaterally, Normal air movement Cardiovascular: No edema, Normal pulses, Regular rate/rhythm, Normal S1 S2 Capillary refill: <2 Seconds Gastrointestinal: Normal bowel sounds, Soft and benign, Non-distended Musculoskeletal: No clubbing, No swelling Integumentary: No rashes, No breakdown Neurological: Normal speech, Normal strength at 5/5 x4 extr, Normal tone, Sensation intact, Cranial nerves 3-12 intact Lymphatics: No axilla or inguinal lymphadenopathy Assessment And Plan - Plan Hypertriglyceridemia: Lipase is 36. Triglyceride is down 976<- 936 <- 1056<- 961<- 3246. CT abd shows non-obstructing right renal upper to mid pole 2 mm calculus. Colonic diverticulosis and splenomegaly. Will continue IVF, insulin drip, prn pain. Will advance to regular diet. Htn: Continue home med Hypokalemia: K is 3.5 <- 3.2 <- 3.5. Will replete and monitor. HLD: Will continue fenofibrate and insulin drip due to elevated triglyceride. Trig is 976<- 936 <- 1056<- 961 <- 3246. T. chol is 288. . DVT ppx: SCD Code: full
[2024-01-13] MEDS ORDERED: D5 0.9 NS 1,000 ML IV ONE ×2 (15:11→23:44)
[2024-01-13] MEDS: DOCOSAHEXANOIC AC/EPA 1000 MG PO SCH (17:30)
[2024-01-13] MEDS ORDERED: HYDRALAZINE HCL 20 MG/ML VIAL ONE (17:31)
[2024-01-13] MEDS: HYDRALAZINE HCL 20 MG/ML VIAL IV ONE (17:39)
[2024-01-14] MEDS ORDERED: NA CHLORIDE 0.9% 100 ML ONE (01:07)
[2024-01-14] MEDS ORDERED: INSULIN REGULAR (HUMAN) 100 UNIT/ML ONE (01:08)
[2024-01-14 04:46] LABS: Absolute Lymphocytes (CBC) 2.4 K/uL (0.7-4.9); Hematocrit 38.3 % (39.6-49.0); MPV 7.7 fL (7.6-11.3); Platelets 216 thou/uL (152-406); RBC Red Blood Cell Count 4.51 M/uL (4.33-5.43)
[2024-01-14 05:01] LABS: Potassium 3.4 mEq/L (3.5-5.1)
[2024-01-14] MEDS ORDERED: GABAPENTIN 300 MG CAP ONE ×3 (08:07→20:12)
[2024-01-14] MEDS ORDERED: POTASSIUM 25 MEQ EFFERV TAB ONE (08:07)
[2024-01-14] MEDS: POTASSIUM 25 MEQ EFFERV TAB PO ONE (09:24)
--- NOTE | 2024-01-14 10:17 | P.PN ---
Subjective Date of Service: 01/14/24 Primary Care Provider: Erin Larkin Chief Complaint: pancreatitis Pt is resting comfortably in bed. Abd pain has resolved. Triglyceride is 801<- 976<- 936 <- 1056 <- 961. Still getting insulin drip. Will wait for the triglyceride to drop down to 400 before we can stop the insulin. No other complaints. Review of Systems Unremarkable General: Unremarkable Eyes: Unremarkable ENT: Unremarkable Respiratory: Unremarkable Cardiovascular: Unremarkable Gastrointestinal: Unremarkable Genitourinary: Unremarkable Musculoskeletal: Leg Pain (left leg pain) Integumentary: Unremarkable Neurological: Unremarkable Lymphatics: Unremarkable Physical Examination - Vital Signs Temperature: 97.3 F Blood Pressure: 144/92 Pulse: 74 Respirations: 16 Pulse Ox (%): 99 - Physical Exam General: Alert, In no apparent distress, Oriented x3 HEENT: Atraumatic, Normocephalic, PERRLA Neck: Supple, 2+ carotid pulse no bruit Respiratory: Clear to auscultation bilaterally, Normal air movement Cardiovascular: No edema, Normal pulses, Regular rate/rhythm, Normal S1 S2 Capillary refill: <2 Seconds Gastrointestinal: Normal bowel sounds, Soft and benign, Non-distended Musculoskeletal: No clubbing, No swelling Integumentary: No rashes, No breakdown Neurological: Normal speech, Normal strength at 5/5 x4 extr, Normal tone, Sensation intact, Cranial nerves 3-12 intact Lymphatics: No axilla or inguinal lymphadenopathy Assessment And Plan - Plan Hypertriglyceridemia: Lipase is 36. Triglyceride is down 801<- 976<- 936 <- 1056<- 961<- 3246. CT abd shows non-obstructing right renal upper to mid pole 2 mm calculus. Colonic diverticulosis and splenomegaly. Will continue IVF, insulin drip, prn pain. Will advance to regular diet. Htn: Continue home med Hypokalemia: K is 3.4<- 3.5 <- 3.2 <- 3.5. Will replete and monitor. HLD: Will continue fenofibrate, omega 3 fish oil, and insulin drip due to elevated triglyceride. Trig is 801<- 976<- 936 <- 1056<- 961 <- 3246. T. chol is 288. Will wait for the triglyceride to drop down to 400 before we can stop the insulin. DVT ppx: SCD Code: full
[2024-01-15 00:22] VITALS: O2SAT 95
[2024-01-15 04:37] LABS: Hematocrit 40.1 % (39.6-49.0); MCV 84.6 fL (80-100); MPV 7.5 fL (7.6-11.3); Platelets 215 thou/uL (152-406); RBC Red Blood Cell Count 4.74 M/uL (4.33-5.43)
[2024-01-15 04:53] LABS: Potassium 3.5 mEq/L (3.5-5.1)
--- NOTE | 2024-01-15 05:37 | P.PN ---
Date of Service: 01/15/24 Subjective: Physical Exam: Vitals: reviewed GEN: Alert, oriented, NAD HEENT: Normal conjunctiva, sclera anicteric CV: Regular rate & rhythm, no edema Pulm: Nonlabored respiraitons, clear bilaterally ABD: Soft, nontender, nondistended MSK: No joint tenderness Integumentary: No rashes Neuro: Normal speech, normal affect Problem List: Hypertriglyceridemia Hyperlipidemia DM2 Hypokalemia Hypertension Plan: Hypertriglyceridemia Hyperlipidemia DM2 CT abd/pelvis (01/10): nonobstructing right renal upper-mid pole 2mm calculus. Colonic diverticulosis, splenomegaly Venous u/s (01/10): negative for DVT lipase is normal triglycerides 3246 on admission continue IV fluids continue insulin drip continue statin PRN anagesics / antiemetics Regular diet triglycerides improving Hypokalemia replete PRN Hypertension confirm home meds, restart as appropriate VTE: SCDs
[2024-01-15] MEDS ORDERED: GABAPENTIN 300 MG CAP ONE (08:19)
[2024-01-15] MEDS: POTASSIUM 25 MEQ EFFERV TAB PO ONE (08:50)
[2024-01-15 16:09] VITALS: TEMP 98.1
[2024-01-15 17:49] VITALS: BP 151/90
== END 2024-01-15 18:07 | disposition home or self-care (01) | DRG 440 ==
LOC: ER 06:37 → ERHOLD 09:02 → 3RD-ICU 17:48
PROVIDERS: ADMIT Hospitalist; ATTEND Hospitalist
DX: K85.90 Acute pancreatitis without necrosis or infection, unspecified (principal); E78.1 Pure hyperglyceridemia; I10 Essential (primary) hypertension; E87.6 Hypokalemia; E11.40 Type 2 diabetes mellitus with diabetic neuropathy, unspecified; E78.00 Pure hypercholesterolemia, unspecified; K57.30 Diverticulosis of large intestine without perforation or abscess without bleeding; R16.1 Splenomegaly, not elsewhere classified; Z79.4 Long term (current) use of insulin; Z90.49 Acquired absence of other specified parts of digestive tract; Z79.84 Long term (current) use of oral hypoglycemic drugs; Z87.891 Personal history of nicotine dependence; Z91.148 Patient's other noncompliance with medication regimen for other reason; Z79.890 Hormone replacement therapy; Z79.899 Other long term (current) drug therapy
CPT/HCPCS: 36415; 74177; 80048; 80053; 80061; 81001; 82550; 82565; 82947; 83690; 83735; 84132; 84478; 84484; 85025; 85610; 86140; 86850; 86900; 86901; 93970; 94760; 96374; 96375; 99285; J0360; J1650; J1815; J2270; J2405; J2930; J7030; J7042; Q9967

== ENCOUNTER 2024-03-10 16:43 | Emergency (ER) | payer SELFPAY ==
[2024-03-10] MEDS ORDERED: ONDANSETRON 4 MG/2 ML VIAL ONE (17:11)
[2024-03-10] MEDS ORDERED: MORPHINE 4 MG/ML SYR ONE ×2 (17:11→21:47)
[2024-03-10] MEDS ORDERED: FAMOTIDINE 20 MG/2 ML VIAL IV ONE (17:11)
[2024-03-10] MEDS ORDERED: NA CHLORIDE 0.9% 1,000 ML ONE (17:11)
[2024-03-10 18:04] LABS: Absolute Basophils 0.1 K/uL (0-0.5); Absolute Eosinophils 0.2 K/uL (0-0.5); Absolute Lymphocytes (CBC) 1.8 K/uL (0.7-4.9); Absolute Monocytes 0.2 K/uL (0.1-1.3); Absolute Neutrophil 3.8 K/uL (1.8-8.0); Basophils % 1.1 % (0-1.3); Hemoglobin 12.8 g/dL (13.6-17.9); Lymphocytes % 29.7 % (15.3-44.8); MCH 28.4 pg (27.0-35.0); MCHC 34.7 g/dL (32.0-36.0); MPV 8.9 fL (7.6-11.3); Monocytes % 3.2 % (3.3-12.3); Nucleated Red Blood Cells % 0.4 % (0-0); RBC Red Blood Cell Count 4.52 M/uL (4.33-5.43); Red Cell Distribution Width 13.7 % (12.1-15.2)
[2024-03-10 18:06] LABS: Platelets 284 thou/uL (152-406)
[2024-03-10 18:27] LABS: Albumin 3.8 g/dL (3.4-5.0); Albumin/Globulin Ratio 1.1 (1.1-1.8); Anion Gap 13.1 mEq/L (5.0-15.0); Bilirubin Total 0.7 mg/dL (0.2-1.0); Globulin 3.5 g/dL (2.3-3.5); Potassium 4.1 mEq/L (3.5-5.1); Protein, Total 7.3 g/dL (6.4-8.2)
--- NOTE | 2024-03-10 18:53 | RAD REPORT ---
EXAM DESCRIPTION: [facility] Single View03/10/2024 5:57 pm CLINICAL HISTORY: upper abdomen pain COMPARISON: Chest Single View dated 05/26/2019; CHEST SINGLE VIEW dated 10/27/2015 TECHNIQUE: Portable AP view of the chest. FINDINGS: The lungs are clear. No pneumothorax or effusion. The cardiomediastinal contours are unre markable. IMPRESSION: No acute cardiopulmonary process.
--- NOTE | 2024-03-10 19:26 | RAD REPORT ---
EXAM DESCRIPTION: CT - Abdomen Pelvis W Contrast - 03/10/2024 6:49 pm CLINICAL HISTORY: ABD PAIN COMPARISON: Abdomen Pelvis W Contrast dated 01/10/2024; Abdomen Pelvis W Contrast dated 05/18/2023 TECHNIQUE: Thin cut axial CT imaging of the abdomen and pelvis was performed following intravenous a dministration of 100 mL Isovue 300. Multiplanar reformats were generated and reviewed. All CT scans are performed using dose optimization technique as appropriate and may include automated exposure control or mA/KV adjustment according to patient size. FINDINGS: No suspicious findings in the lung bases. The liver shows diffuse parenchymal hypoattenuation suggesting steatosis. Stable splenomegaly. Adrena l glands and pancreas show no suspicious findings. Gallbladder was surgically removed. Symmetric renal function is seen with no hydronephrosis or suspicious renal mass. No dilated bowel loops or bowel wall thickening. Colonic diverticulosis. Appendix is unremarkable. No free air, free fluid or inflammatory stranding. No hernia, mass or bulky lymphadenopathy. The urinar y bladder is without significant finding. No suspicious bony findings. IMPRESSION: No acute intra-abdominal process. Stable splenomegaly and hepatic steatosis.
[2024-03-10] MEDS ORDERED: INSULIN REGULAR (HUMAN) 100 UNIT/ML ONE (20:39)
--- NOTE | 2024-03-10 21:27 | ER ---
Nurse's Notes [facility] Name: Vasyl Cope Age: 49 yrs Sex: Male : 1975 Arrival Date: 03/10/2024 Time: 16:43 Bed 19 Private MD: Diagnosis: Abdominal pain, unspecified;Diabetes mellitus due to underlying condition with hyperglycemia Presentation: 03/10 16:55 Chief complaint: Patient states: RUQ pain radiating to back. aa5 16:55 Coronavirus screen: At this time, the client does not indicate any symptoms associated aa5 with coronavirus-19. Ebola Screen: Patient denies travel to an Ebola-affected area in the 21 days before illness onset. Initial Sepsis Screen: Does the patient meet any 2 criteria? HR > 90 bpm. Does the patient have a suspected source of infection? No. Patient's initial sepsis screen is negative. Risk Assessment: Do you want to hurt yourself or someone else? Patient reports no desire to harm self or others. Onset of symptoms was February 2024. 16:55 Acuity: BRENDAN 3 aa5 16:55 Method Of Arrival: Ambulatory aa5 Historical: - Allergies: 16:55 No Known Allergies; aa5 - PMHx: 16:55 Diabetes - NIDDM; High Cholesterol; Hypertension; Pancreatitis; aa5 - PSHx: 16:55 BELA knee; aa5 16:55 Cholecystectomy; aa5 - Immunization history:: Adult Immunizations unknown. - Infectious Disease History:: Denies. - Social history:: Smoking status: Patient/guardian denies using tobacco, the patient reports quitting approximately 2013 years ago. Screenin:[facility] ED Fall Risk Assessment (Adult) History of falling in the last 3 months, cp4 including since admission No falls in past 3 months (0 pts) Confusion or Disorientation No (0 pts) Intoxicated or Sedated No (0 pts) Impaired Gait No (0 pts) Mobility Assist Device Used No (0 pt) Altered Elimination No (0 pt) Score/Fall Risk Level 0 - 2 = Low Risk Oriented to surroundings, Maintained a safe environment, Assessed \T\ reinforced patient's understanding of fall precautions, Hourly rounding (assess needs \T\ fall precautionary measures) done. Abuse screen: Denies threats or abuse. Nutritional screening: No deficits noted. Tuberculosis screening: No symptoms or risk factors identified. Assessment: 20:24 General: Appears uncomfortable, Behavior is calm, cooperative, appropriate for age. cp4 Pain: Complains of pain in abdomen. GI: Bowel sounds present X 4 quads. Abd is soft and non tender X 4 quads. 21:50 Reassessment: Pending discharge. Patient on shot time. cp4 22:35 Reassessment: Patient appears in no apparent distress at this time. Patient is alert, pf1 oriented x 3, equal unlabored respirations, skin warm/dry/pink. patient pending medication watch time, Patient stated does not have anyone to transport him home. Patient states symptoms have improved. 23:20 Reassessment: Patient appears in no apparent distress at this time. Patient and/or pf1 family updated on plan of care and expected duration. Pain level reassessed. Patient is alert, oriented x 3, equal unlabored respirations, skin warm/dry/pink. Patient states symptoms have improved. 03/11 00:07 Reassessment: Patient appears in no apparent distress at this time. Patient and/or pf1 family updated on plan of care and expected duration. Pain level reassessed. Patient is alert, oriented x 3, equal unlabored respirations, skin warm/dry/pink. Patient states feeling better. Patient states symptoms have improved. Vital Signs: 03/10 16:55 BP 158 / 104; Pulse 92; Resp 16 S; Temp 97.3(TE); Pulse Ox 99% on R/A; Weight 86.18 kg aa5 (R); Height 5 ft. 10 in. (R); 19:00 BP 171 / 103; Pulse 90; Resp 18; Pulse Ox 98% ; cp4 20:00 BP 158 / 103; Pulse 83; Resp 18; Pulse Ox 100% ; cp4 21:00 BP 162 / 106; Pulse 82; Resp 18; Pulse Ox 96% ; cp4 22:00 BP 156 / 98; Pulse 89; Resp 16; Pulse Ox 98% on R/A; pf1 23:00 BP 172 / 104; Pulse 83; Resp 16; Pulse Ox 97% on R/A; pf1 03/11 00:00 BP 161 / 100; Pulse 79; Resp 16; Temp 98.1; Pulse Ox 100% on R/A; Pain 4/10; pf1 03/10 16:55 Body Mass Index 27.26 (86.18 kg, 177.8 cm) aa5 03/11 00:00 Pain Scale: Adult pf1 ED Course: 03/10 16:46 Patient arrived in ED. mg5 16:55 Arm band placed on. aa5 16:56 Giovanny Puri PA is PHCP. cp 16:56 Braden Polk MD is Attending Physician. cp 17:06 Triage completed. aa5 17:27 Initial lab(s) drawn, by me, sent to lab. Inserted saline lock: 22 gauge in left hb forearm, using aseptic technique. Blood collected. 17:27 CBC with Diff Sent. hb 17:27 CMP Sent. hb 17:27 Lipase Sent. hb 17:59 XRAY Chest (1 view) In Process Unspecified. EDMS 18:23 Maisha Guardado is Primary Nurse. cp4 18:51 CT Abd/Pelvis - IV Contrast Only In Process Unspecified. EDMS 20:24 Placed in gown. Bed in low position. Call light in reach. Side rails up X 1. Provided cp4 Education on: abdominal pain. 20:24 No provider procedures requiring assistance completed. cp4 23:22 IV discontinued, intact, bleeding controlled, No redness/swelling at site. Pressure pf1 dressing applied. Administered Medications: 17:28 Drug: NS 0.9% IV 1000 ml IV at 1 bolus Per protocol; 1000 mL bolus Route: IV; Rate: 1 hb bolus; Site: right forearm; 20:36 Follow up: Response: No adverse reaction; IV Status: Completed infusion cp4 17:28 Drug: Famotidine IVP 20 mg IVP once; dilute with 10 mL 0.9% NaCl; give over 2 minutes hb Route: IVP; Site: right forearm; 20:36 Follow up: Response: No adverse reaction cp4 17:28 Drug: Ondansetron IVP 4 mg IVP once; over 2 minutes Route: IVP; Site: right forearm; hb 20:36 Follow up: Response: No adverse reaction cp4 17:28 Drug: morphine IVP or IV 4 mg IVP once over 4 mins Route: IVP; Infused Over: 4 mins; hb Site: right forearm; 20:37 Follow up: Response: No adverse reaction cp4 20:44 Drug: Insulin Regular Human Sub-Q 10 units Sub-Q once {Co-Signature: ha1 (Chinyere Sotelo cp4 RN).} Route: Sub-Q; Site: right upper arm; 21:05 Follow up: Response: No adverse reaction; Blood sugar is lowered cp4 21:50 Drug: morphine IVP or IV 4 mg IVP once over 4 mins Route: IVP; Infused Over: 4 mins; cp4 Site: right forearm; 22:50 Follow up: Response: No adverse reaction; Marked relief of symptoms; Pain is decreased; pf1 RASS: Alert and Calm (0) Medication: 20:24 VIS not applicable for this client. cp4 Outcome: 21:26 Discharge ordered by MD. cp 03/11 00:08 Discharged to home ambulatory, pf1 Condition: improved Discharge instructions given to patient, Instructed on discharge instructions, follow up and referral plans. Demonstrated understanding of instructions, follow-up care, medications, Prescriptions given X 2, 00:08 Patient left the ED. pf1 Signatures: Dispatcher [employer] EDMS Deirdre Viramontes RN RN aa5 Giovanny Puri PA PA Sandra Ramirez RN RN Kraeen Velásquez RN RN pf1 Hayley Gama mg5 Maisha Guardado cp4 Chinyere Sotelo RN ha1 Corrections: (The following items were deleted from the chart) 03/10 17:04 16:55 PSHx: Lane dawn aa5
--- NOTE | 2024-03-10 21:27 | EDPHYS ---
Physician Documentation [facility] Name: Vasyl Cope Age: 49 yrs Sex: Male : 1975 Arrival Date: 03/10/2024 Time: 16:43 Bed 19 Private MD: ED Physician Braden Polk HPI: 03/10 17:05 This 49 yrs old Male presents to ER via Ambulatory with complaints of Abdominal Pain. cp 17:05 The patient presents with abdominal pain in the right upper quadrant. cp 17:05 Onset: The symptoms/episode began/occurred for past several days. cp 17:05 The symptoms radiate to right back. Associated signs and symptoms: Pertinent positives: cp nausea, Pertinent negatives: constipation, diarrhea, fever, vomiting. 17:05 The patient has experienced similar episodes in the past, today's symptoms are similar, cp to when the patient was apparently diagnosed with pancreatitis. Historical: - Allergies: 16:55 No Known Allergies; aa5 - PMHx: 16:55 Diabetes - NIDDM; High Cholesterol; Hypertension; Pancreatitis; aa5 - PSHx: 16:55 BELA knee; aa5 16:55 Cholecystectomy; aa5 - Immunization history:: Adult Immunizations unknown. - Infectious Disease History:: Denies. - Social history:: Smoking status: Patient/guardian denies using tobacco, the patient reports quitting approximately 2013 years ago. ROS: 17:10 Constitutional: Negative for body aches, chills, fever, poor PO intake, cp 17:10 Eyes: Negative for injury, pain, redness, and discharge, cp 17:10 ENT: Negative for drainage from ear(s), ear pain, sore throat, difficulty swallowing, difficulty handling secretions, 17:10 Cardiovascular: Negative for chest pain, edema, palpitations, 17:10 Respiratory: Negative for cough, shortness of breath, wheezing, 17:10 Abdomen/GI: Positive for abdominal pain, of the right upper quadrant, Negative for vomiting, diarrhea, constipation, 17:10 Back: Positive for radiated pain, 17:10 : Negative for urinary symptoms, testicular pain 17:10 All other systems are negative, Exam: 17:15 Constitutional: The patient appears in no acute distress, alert, awake, cp non-diaphoretic, non-toxic, well developed, well nourished, uncomfortable, 17:15 Head/Face: Normocephalic, atraumatic. cp 17:15 Eyes: Periorbital structures: appear normal, Conjunctiva: normal, no exudate, no injection, Sclera: no appreciated abnormality, Lids and lashes: appear normal, bilaterally, 17:15 ENT: External ear(s): are unremarkable, Nose: is normal, Mouth: Lips: moist, Oral mucosa: pink and intact, moist, Posterior pharynx: is normal, airway is patent, no erythema, no exudate, 17:15 Neck: ROM/movement: is normal, 17:15 Chest/axilla: Inspection: normal, Palpation: is normal, no crepitus, no tenderness, 17:15 Cardiovascular: Rate: normal, Rhythm: regular, 17:15 Respiratory: the patient does not display signs of respiratory distress, Respirations: normal, no use of accessory muscles, no retractions, labored breathing, is not present, Breath sounds: are clear throughout, no decreased breath sounds, no stridor, no wheezing, 17:15 Abdomen/GI: Inspection: abdomen appears normal, Bowel sounds: active, all quadrants, Palpation: soft, in all quadrants, severe abdominal tenderness, in the right upper quadrant, rebound tenderness, is not appreciated, voluntary guarding, is elicited in the right upper quadrant, 17:15 Back: pain, that is moderate, of the right mid back, ROM is painful, with all movement, 17:15 Skin: cellulitis, is not appreciated, no rash present. Vital Signs: 16:55 BP 158 / 104; Pulse 92; Resp 16 S; Temp 97.3(TE); Pulse Ox 99% on R/A; Weight 86.18 kg aa5 (R); Height 5 ft. 10 in. (R); 19:00 BP 171 / 103; Pulse 90; Resp 18; Pulse Ox 98% ; cp4 20:00 BP 158 / 103; Pulse 83; Resp 18; Pulse Ox 100% ; cp4 21:00 BP 162 / 106; Pulse 82; Resp 18; Pulse Ox 96% ; cp4 22:00 BP 156 / 98; Pulse 89; Resp 16; Pulse Ox 98% on R/A; pf1 23:00 BP 172 / 104; Pulse 83; Resp 16; Pulse Ox 97% on R/A; pf1 03/11 00:00 BP 161 / 100; Pulse 79; Resp 16; Temp 98.1; Pulse Ox 100% on R/A; Pain 4/10; pf1 03/10 16:55 Body Mass Index 27.26 (86.18 kg, 177.8 cm) aa5 03/11 00:00 Pain Scale: Adult pf1 MDM: 03/10 16:56 Patient medically screened. 18:00 Differential diagnosis: pancreatitis, Peptic Ulcer Disease, Perf. Duodenal Ulcer, Perf. cp Gastric Ulcer, Pyelonephritis, Ureterolithiasis, urinary tract infection, choledocholithiasis. 21:25 Data reviewed: vital signs, nurses notes, lab test result(s), radiologic studies, CT cp scan, plain films. 21:25 I considered the following discharge prescriptions or medication management in the emergency department Medications were administered in the Emergency Department. See MAR. Counseling: I had a detailed discussion with the patient and/or guardian regarding the historical points, exam findings, and any diagnostic results supporting the discharge/admit diagnosis, lab results, radiology results, to return to the emergency department if symptoms worsen or persist or if there are any questions or concerns that arise at home. Response to treatment: the patient's symptoms have markedly improved after treatment, and as a result, I will discharge patient. Special discussion: Based on the patient's Hx, exam, and Dx evaluation, there is no indication for emergent surgery or inpatient Tx. It is understood by the patient/guardian that if the Sx's persist or worsen they need to return immediately for re-evaluation. 03/10 17:03 Order name: CBC with Diff; Complete Time: 18:30 03/10 18:30 Interpretation: Normal except: HGB 12.8; HCT 37.0; MN% 3.2. 03/10 17:03 Order name: CMP; Complete Time: 18:30 03/10 18:30 Interpretation: Normal except: GLUC 376; NA 132; AST 51. 03/10 17:03 Order name: Lipase; Complete Time: 18:30 03/10 18:31 Interpretation: Reviewed. 03/10 17:03 Order name: Urinalysis w/ reflexes; Complete Time: 21:53 03/10 21:53 Interpretation: Normal except: Urine SG > 1.030; UGLUC 4+ (Over). 03/10 21:45 Order name: Glucose, Ancillary Testing; Complete Time: 21:53 EDMS 03/10 21:53 Interpretation: Abnormal: GLUC,ANCIL 233. cp 03/10 17:03 Order name: CT Abd/Pelvis - IV Contrast Only; Complete Time: 20:00 cp 03/10 17:28 Order name: XRAY Chest (1 view); Complete Time: 20:00 cp 03/10 17:03 Order name: IV Saline Lock; Complete Time: 17:27 cp 03/10 17:03 Order name: Labs collected and sent; Complete Time: 17:27 cp Administered Medications: 17:28 Drug: NS 0.9% IV 1000 ml IV at 1 bolus Per protocol; 1000 mL bolus Route: IV; Rate: 1 hb bolus; Site: right forearm; 20:36 Follow up: Response: No adverse reaction; IV Status: Completed infusion cp4 17:28 Drug: Famotidine IVP 20 mg IVP once; dilute with 10 mL 0.9% NaCl; give over 2 minutes hb Route: IVP; Site: right forearm; 20:36 Follow up: Response: No adverse reaction cp4 17:28 Drug: Ondansetron IVP 4 mg IVP once; over 2 minutes Route: IVP; Site: right forearm; hb 20:36 Follow up: Response: No adverse reaction cp4 17:28 Drug: morphine IVP or IV 4 mg IVP once over 4 mins Route: IVP; Infused Over: 4 mins; hb Site: right forearm; 20:37 Follow up: Response: No adverse reaction cp4 20:44 Drug: Insulin Regular Human Sub-Q 10 units Sub-Q once {Co-Signature: haMorgan (Chinyere Sotelo cp4 RN).} Route: Sub-Q; Site: right upper arm; 21:05 Follow up: Response: No adverse reaction; Blood sugar is lowered cp4 21:50 Drug: morphine IVP or IV 4 mg IVP once over 4 mins Route: IVP; Infused Over: 4 mins; cp4 Site: right forearm; 22:50 Follow up: Response: No adverse reaction; Marked relief of symptoms; Pain is decreased; pf1 RASS: Alert and Calm (0) Disposition Summary: 03/10/24 21:26 Discharge Ordered Notes: Location: Home cp Problem: new cp Symptoms: have improved cp Condition: Stable cp Diagnosis - Abdominal pain, unspecified cp - Diabetes mellitus due to underlying condition with hyperglycemia cp Followup: cp - With: Private Physician - When: 1 - 2 days - Reason: Worsening of condition Discharge Instructions: - Discharge Summary Sheet cp - Abdominal Pain, Adult cp - Type 2 Diabetes Mellitus, Diagnosis, Adult cp - Blood Glucose Monitoring, Adult cp Forms: - Medication Reconciliation Form cp - Thank You Letter cp - Antibiotic Education cp - Prescription Opioid Use cp - Patient Portal Instructions cp - Leadership Thank You Letter cp Prescriptions: - Zofran 4 mg Oral Tablet - take 1 tablet ORAL route every 12 hours As needed; 20 tablet; Refills: 0, cp Product Selection Permitted - dicyclomine 20 mg Oral tablet - take 1 tablet ORAL route 4 times per day; 30 tablet; Refills: 0, Product cp Selection Permitted Signatures: Dispatcher [employer] Deirdre Lees RN RN aa5 Giovanny Puri PA PA Sandra Morris RN RN Maisha Guardado cp4 Kareen Velásquez RN pf1 Chinyere Sotelo RN ha1 Corrections: (The following items were deleted from the chart) 17:04 16:55 PSHx: Lane dawn aa5
[2024-03-10 21:48] LABS: Urine Bilirubin NEGATIVE (Negative); Urine Blood Negative (Negative); Urine Clarity Clear (Clear); Urine Color Colorless (Yellow); Urine Glucose 4+ (Over) (Negative); Urine Ketones NEGATIVE (Negative); Urine Microscopic Reflex YN NO UMIC; Urine Nitrite NEGATIVE (Negative); Urine Protein NEGATIVE (Negative); Urine Urobilinogen Normal (Normal)
[2024-03-10 21:50] LABS: Specific Gravity > 1.030 (1.005-1.030)
[2024-03-11 03:23] VITALS: BP 161/100; TEMP 98.1; O2SAT 100
== END 2024-03-11 00:08 | disposition home or self-care (01) ==
LOC: ER 16:43
DX: R10.11 Right upper quadrant pain (principal); E08.65 Diabetes mellitus due to underlying condition with hyperglycemia
CPT/HCPCS: 36415; 71045; 74177; 80053; 81003; 82947; 83690; 85025; 96361; 96372; 96374; 96375; 99284; J1815; J2405; J7030; Q9967

== ENCOUNTER 2024-12-07 13:46 | Inpatient (IN) | payer BC, SELFPAY ==
[2024-12-07] MEDS ORDERED: ONDANSETRON 4 MG/2 ML VIAL ONE (14:20)
[2024-12-07] MEDS ORDERED: MORPHINE 4 MG/ML SYR ONE ×2 (14:21→16:04)
[2024-12-07] MEDS ORDERED: NA CHLORIDE 0.9% 1,000 ML ONE ×2 (14:21→17:10)
[2024-12-07 15:03] LABS: Albumin 3.9 g/dL (3.4-5.0); Anion Gap 11.8 mEq/L (5.0-15.0); Bilirubin Total 0.8 mg/dL (0.2-1.0); Globulin 3.9 g/dL (2.3-3.5); Protein, Total 7.8 g/dL (6.4-8.2)
[2024-12-07 15:20] LABS: Potassium 4.8 mEq/L (3.5-5.1)
[2024-12-07 16:13] LABS: Specific Gravity > 1.030 (1.005-1.030); Sqamous Epithelial None Seen /HPF (None Seen); Urine Bacteria <20 /HPF (<20); Urine Bilirubin NEGATIVE (Negative); Urine Blood Negative (Negative); Urine Clarity Clear (Clear); Urine Color Colorless (Yellow); Urine Culture Reflex Order NOT NEEDED; Urine Glucose 4+ (Over) (Negative); Urine Ketones NEGATIVE (Negative); Urine Microscopic Reflex YN ORDER UMIC; Urine Mucus Slight /HPF (None Seen); Urine Nitrite NEGATIVE (Negative); Urine Protein NEGATIVE (Negative); Urine RBC <5 /HPF (None Seen); Urine Urobilinogen Normal (Normal); Urine WBC None Seen /HPF (<5); Urine pH 5.5 (5.0-7.0)
--- NOTE | 2024-12-07 16:52 | RAD REPORT ---
EXAMINATION: CT Abdomen Pelvis W Contrast CLINICAL INDICATION: Male, 49 years old. ABD PAIN TECHNIQUE: CT abdomen and pelvis was performed, after the administration of IV contrast, [facility]. Axial, sagittal and coronal reconstructions were obtained. One or more of the following dose reduction techniques were used: Automated exposure control, adjustment of the mA and k V according to patient size, and iterative reconstruction. Unless otherwise specified, incidental findings do not require dedicated imaging follow-up. COMPARISON: 03/10/2024 FINDINGS: LOWER CHEST: The visualized lung bases are clear. LIVER: Significant fatty liver with hepatomegaly present. No focal lesion or biliary dilitation. BILIARY SYSTEM: No suspicious abnormalities. SPLEEN: Normal size. No focal lesion. PANCREAS: Focal swelling with peripancreatic fat stranding involving the distal body of the pancreas. No discrete mass,, cyst, or ductal dilation. No peripancreatic collections ADRENALS: Normal; no mass. KIDNEYS: Normal size and contour. No hydronephrosis. URINARY BLADDER: Unremarkable. GASTROINTESTINAL TRACT: No evidence of free air, significant intra-abdominal free fluid, bowel obstru ction or abscess. Sigmoid diverticulosis. APPENDIX: Normal appendix. LYMPH NODES: No lymphadenopathy. MUSCULOSKELETAL: No acute or suspicious osseous abnormality. ADDITIONAL FINDINGS: None. IMPRESSION: Findings acute uncomplicated interstitial pancreatitis involving the distal body of the pancreas. Sigmoid diverticulosis. Diffuse hepatic steatosis.
[2024-12-07 16:58] LABS: Absolute Basophils 0.1 K/uL (0-0.5); Absolute Eosinophils 0.2 K/uL (0-0.5); Basophils % 0.8 % (0-1.3); Eosinophils % 2.4 % (0-4.4); MCV 84.3 fL (80-100); Monocytes % 4.8 % (3.3-12.3); Red Cell Distribution Width 17.1 % (12.1-15.2)
[2024-12-07 17:21] LABS: Absolute Lymphocytes (CBC) 1.3 K/uL (0.7-4.9); Absolute Monocytes 0.4 K/uL (0.1-1.3); Hematocrit 46.3 % (39.6-49.0); Hemoglobin 15.6 g/dL (13.6-17.9); Lymphocytes % 14.4 % (15.3-44.8); MPV 9.6 fL (7.6-11.3); Neutrophils % 77.6 % (41.7-73.7); Nucleated RBC Absolute Count 0.1 (0-0); Nucleated Red Blood Cells % 0.6 % (0-0); Platelets 138 thou/uL (152-406)
[2024-12-07 17:28] LABS: MCH 28.4 pg (27.0-35.0)
[2024-12-07 17:29] LABS: MCHC 33.7 g/dL (32.0-36.0)
--- NOTE | 2024-12-07 18:04 | EDPHYS ---
Physician Documentation [facility] Name: Vasyl Cope Age: 49 yrs Sex: Male : 1975 Arrival Date: 12/07/2024 Time: 13:46 Bed 5 Private MD: ED Physician Asael May HPI: 12/07 15:27 This 49 yrs old Male presents to ER via Ambulatory with complaints of Abdominal Pain. sp3 15:27 49-year-old male with history of diabetes, hyperlipidemia, hypertension, triglyceride sp3 induced pancreatitis episodes in the past now presents with epigastric pain for last 48 hours and feels like he is having another flareup of pancreatitis. He denies any alcohol use, and has had a cholecystectomy. Review of systems negative for fever, headache, neck pain, chest pain, shortness of breath, lower abdominal pain, back pain, syncope, near syncope, known sick contacts, travel history, or any other signs or symptoms on ROS at this time.. Historical: - Allergies: 14:06 No Known Allergies; ll1 - PMHx: 14:06 Diabetes - NIDDM; High Cholesterol; Hypertension; Pancreatitis; ll1 - PSHx: 14:06 BELA knee; Cholecystectomy; ll1 - Immunization history:: Adult Immunizations up to date. - Infectious Disease History:: Denies. - Social history:: Smoking status: Patient denies any tobacco usage or history of. ROS: 15:28 Constitutional: Negative for fever, chills, and weight loss, Eyes: Negative for injury, sp3 pain, redness, and discharge, Neck: Negative for injury, pain, and swelling, Cardiovascular: Negative for chest pain, palpitations, and edema, Respiratory: Negative for shortness of breath, cough, wheezing, and pleuritic chest pain, Back: Negative for injury and pain, : Negative for injury, bleeding, discharge, and swelling, MS/Extremity: Negative for injury and deformity, Skin: Negative for injury, rash, and discoloration, Neuro: Negative for headache, weakness, numbness, tingling, and seizure, Psych: Negative for depression, anxiety, suicide ideation, homicidal ideation, and hallucinations, Allergy/Immunology: Negative for hives, rash, and allergies, Endocrine: Negative for neck swelling, polydipsia, polyuria, polyphagia, and marked weight changes, 15:28 All other systems are negative, Exam: 15:28 Constitutional: This is a well developed, well nourished patient who is awake, alert, sp3 and in no acute distress. Head/Face: Normocephalic, atraumatic. Eyes: Pupils equal round and reactive to light, extra-ocular motions intact. Lids and lashes normal. Conjunctiva and sclera are non-icteric and not injected. Cornea within normal limits. Periorbital areas with no swelling, redness, or edema. Neck: Trachea midline, no thyromegaly or masses palpated, and no cervical lymphadenopathy. Supple, full range of motion without nuchal rigidity, or vertebral point tenderness. No Meningismus. Chest/axilla: Normal chest wall appearance and motion. Nontender with no deformity. No lesions are appreciated. Cardiovascular: Regular rate and rhythm with a normal S1 and S2. No gallops, murmurs, or rubs. Normal PMI, no JVD. No pulse deficits. Respiratory: Lungs have equal breath sounds bilaterally, clear to auscultation and percussion. No rales, rhonchi or wheezes noted. No increased work of breathing, no retractions or nasal flaring. Back: No spinal tenderness. No costovertebral tenderness. Full range of motion. Skin: Warm, dry with normal turgor. Normal color with no rashes, no lesions, and no evidence of cellulitis. MS/ Extremity: Pulses equal, no cyanosis. Neurovascular intact. Full, normal range of motion. Neuro: Awake and alert, GCS 15, oriented to person, place, time, and situation. Cranial nerves II-XII grossly intact. Motor strength 5/5 in all extremities. Sensory grossly intact. Cerebellar exam normal. Normal gait. Psych: Awake, alert, with orientation to person, place and time. Behavior, mood, and affect are within normal limits. 15:28 Abdomen/GI: Patient with epigastric pain to palpation without peritoneal signs, rebound or guarding., Vital Signs: 14:05 BP 140 / 93; Pulse 99; Resp 17; Temp 97.8; Pulse Ox 96% ; Weight 95.25 kg; Height 5 ft. ll1 10 in. ; Pain 10/10; 16:30 BP 114 / 80; Pulse 90; Resp 16; Pulse Ox 95% ; Pain 7/10; db 17:00 BP 123 / 78; Pulse 85; Resp 17; Pulse Ox 95% on R/A; db 17:45 BP 119 / 67; Pulse 89; Resp 16; Pulse Ox 95% on R/A; db 21:00 BP 147 / 93; Pulse 87; Resp 16; Pulse Ox 100% on R/A; al5 14:05 Body Mass Index 30.13 (95.25 kg, 177.8 cm) ll1 14:05 Pain Scale: Adult ll1 16:30 Pain Scale: Adult db MDM: 14:13 Medical Screening Exam initiated sp3 15:28 Data reviewed: vital signs, nurses notes, old medical records, lab test result(s), sp3 radiologic studies. ED course: 41-year-old male with epigastric pain. Differential diagnosis includes pancreatitis, gastritis, functional abdominal pain, colitis, among others. I am not highly suspicious for sepsis, shock, pathology, aortic pathology, or any other critical process at this time. Workup will include CT scan of the abdomen pelvis with IV contrast, general labs including lipase, IV fluids and pain and nausea control with IV meds. Disposition pending workup and patient course.. 12/07 14:13 Order name: CBC with Diff; Complete Time: 17:34 sp3 12/07 14:13 Order name: CMP; Complete Time: 16:42 sp3 12/07 14:13 Order name: Lipase; Complete Time: 16:42 sp3 12/07 14:13 Order name: Urinalysis w/ reflexes; Complete Time: 16:42 sp3 12/07 18:13 Order name: Urinalysis w/ reflexes EDMS 12/07 18:13 Order name: CBC with Automated Diff EDMS 12/07 18:13 Order name: CBC with Automated Diff EDMS 12/07 18:13 Order name: Comprehensive Metabolic Panel EDMS 12/07 18:13 Order name: Comprehensive Metabolic Panel EDMS 12/07 18:13 Order name: Lipid Profile EDMS 12/07 18:13 Order name: Lipid Profile EDMS 12/07 18:13 Order name: Magnesium EDMS 12/07 18:13 Order name: Magnesium EDMS 12/07 18:13 Order name: Phosphorus EDMS 12/07 18:13 Order name: Phosphorus EDMS 12/07 14:13 Order name: CT Abd/Pelvis - IV Contrast Only; Complete Time: 17:00 sp3 12/07 14:13 Order name: IV Saline Lock; Complete Time: 14:39 sp3 12/07 14:13 Order name: Labs collected and sent; Complete Time: 14:44 sp3 Administered Medications: 14:35 Drug: Ondansetron IVP 4 mg IVP once; over 2 minutes Route: IVP; Site: right forearm; db 17:18 Follow up: Response: No adverse reaction db 14:35 Drug: morphine IVP or IV 4 mg IVP once over 4 mins Route: IVP; Infused Over: 4 mins; db Site: right forearm; 17:19 Follow up: Response: No adverse reaction db 14:35 Drug: NS 0.9% IV 1000 ml IV at 1 bolus Per protocol; to be given as a bolus over 60 db minutes Route: IV; Rate: 1 bolus; Site: right forearm; 16:35 Follow up: Response: No adverse reaction; IV Status: Completed infusion; IV Intake: db 1000ml 16:33 Drug: morphine IVP or IV 4 mg IVP once over 4 mins Route: IVP; Infused Over: 4 mins; db Site: right antecubital; 17:18 Follow up: Response: No adverse reaction; Pain is decreased db 17:16 Drug: NS 0.9% IV 1000 ml IV at 1 bolus Per protocol; to be given as a bolus over 60 db minutes Route: IV; Rate: 1 bolus; Site: right antecubital; 20:04 Follow up: Response: No adverse reaction; IV Status: Completed infusion; IV Intake: al5 1000ml Disposition Summary: 12/07/24 18:04 Hospitalization Ordered Notes: Hospitalization Status: Observation sp3 Provider: Solis Bullard sp3 Location: Telemetry/[facility] (observation) sp3 Condition: Stable sp3 Problem: an acute exacerbation sp3 Symptoms: have worsened sp3 Bed/Room Type: Standard sp3 Room Assignment: 410(12/07/24 19:02) iw Diagnosis - Pancreatitis, hypertriglyceridemia sp3 Forms: - Medication Reconciliation Form sp3 - SBAR form sp3 - Leadership Thank You Letter sp3 Signatures: Dispatcher [employer] Debra Sams RN RN iw Lewis, Lynsay, RN RN ll1 Asael May MD MD sp3 Marika Putnam RN RN db Langhorst, Amanda RN al5 Corrections: (The following items were deleted from the chart) 14:14 14:14 CBC+H.LAB.BRZ ordered. EDMS EDMS 14:14 14:14 COMPREHENSIVE METABOLIC PANEL+C.LAB.BRZ ordered. EDMS EDMS 14:14 14:14 LIPASE+C.LAB.BRZ ordered. EDMS EDMS 14:14 14:14 Urinalysis+U.LAB.BRZ ordered. EDMS EDMS 14:14 14:14 Abdomen Pelvis W Con+CT.RAD.BRZ ordered. EDMS EDMS 19:02 18:04 sp3 iw
--- NOTE | 2024-12-07 18:04 | ER ---
Nurse's Notes [facility] Name: Vasyl Cope Age: 49 yrs Sex: Male : 1975 Arrival Date: 12/07/2024 Time: 13:46 Bed 5 Private MD: Diagnosis: Pancreatitis, hypertriglyceridemia Presentation: 12/07 14:05 Chief complaint: Patient states: Upper abdominal pain for 1 day. States its a ll1 pancreatitis flare-up. Coronavirus screen: Client denies travel out of the [place] in the last 14 days. At this time, the client does not indicate any symptoms associated with coronavirus-19. Ebola Screen: Patient denies travel to an Ebola-affected area in the 21 days before illness onset. Initial Sepsis Screen: Does the patient meet any 2 criteria? No. Patient's initial sepsis screen is negative. Does the patient have a suspected source of infection? No. Patient's initial sepsis screen is negative. Risk Assessment: Do you want to hurt yourself or someone else? Patient reports no desire to harm self or others. Onset of symptoms was December 07, 2024. 14:05 Method Of Arrival: Ambulatory 1 14:05 Acuity: BRENDAN 2 ll1 Triage Assessment: 14:06 General: Appears uncomfortable, ill, Behavior is calm, cooperative, appropriate for ll1 age. Pain: Complains of pain in abdomen Quality of pain is described as aching. GI: Reports upper abdominal pain, indigestion. Historical: - Allergies: 14:06 No Known Allergies; ll1 - PMHx: 14:06 Diabetes - NIDDM; High Cholesterol; Hypertension; Pancreatitis; ll1 - PSHx: 14:06 BELA knee; Cholecystectomy; ll1 - Immunization history:: Adult Immunizations up to date. - Infectious Disease History:: Denies. - Social history:: Smoking status: Patient denies any tobacco usage or history of. Screenin:46 [facility] ED Fall Risk Assessment (Adult) History of falling in the last 3 months, db including since admission No falls in past 3 months (0 pts) Confusion or Disorientation No (0 pts) Intoxicated or Sedated No (0 pts) Impaired Gait No (0 pts) Mobility Assist Device Used No (0 pt) Altered Elimination No (0 pt) Score/Fall Risk Level 0 - 2 = Low Risk Oriented to surroundings, Maintained a safe environment. Abuse screen: Denies threats or abuse. Denies injuries from another. Nutritional screening: No deficits noted. Tuberculosis screening: No symptoms or risk factors identified. Assessment: 14:30 Reassessment: Patient appears in no apparent distress at this time. Patient and/or db family updated on plan of care and expected duration. Pain level reassessed. Patient is alert, oriented x 3, equal unlabored respirations, skin warm/dry/pink. General: Appears in no apparent distress. comfortable, Behavior is calm, cooperative. Pain: Complains of pain in abdomen. Neuro: Level of Consciousness is awake, alert, obeys commands, Oriented to person, place, time, situation. Respiratory: Airway is patent Respiratory effort is even, unlabored, Respiratory pattern is regular, symmetrical. GI: Bowel sounds present X 4 quads. Abd is soft. 15:30 Reassessment: Patient appears in no apparent distress at this time. Patient and/or db family updated on plan of care and expected duration. Pain level reassessed. Patient is alert, oriented x 3, equal unlabored respirations, skin warm/dry/pink. 16:41 Reassessment: Patient appears in no apparent distress at this time. Patient and/or db family updated on plan of care and expected duration. Pain level reassessed. Patient is alert, oriented x 3, equal unlabored respirations, skin warm/dry/pink. 17:17 Reassessment: Patient appears in no apparent distress at this time. Patient and/or db family updated on plan of care and expected duration. Pain level reassessed. Patient is alert, oriented x 3, equal unlabored respirations, skin warm/dry/pink. Patient states symptoms have improved. 18:15 Reassessment: Patient appears in no apparent distress at this time. Patient and/or db family updated on plan of care and expected duration. Pain level reassessed. Patient is alert, oriented x 3, equal unlabored respirations, skin warm/dry/pink. Vital Signs: 14:05 BP 140 / 93; Pulse 99; Resp 17; Temp 97.8; Pulse Ox 96% ; Weight 95.25 kg; Height 5 ft. ll1 10 in. ; Pain 10/10; 16:30 BP 114 / 80; Pulse 90; Resp 16; Pulse Ox 95% ; Pain 7/10; db 17:00 BP 123 / 78; Pulse 85; Resp 17; Pulse Ox 95% on R/A; db 17:45 BP 119 / 67; Pulse 89; Resp 16; Pulse Ox 95% on R/A; db 21:00 BP 147 / 93; Pulse 87; Resp 16; Pulse Ox 100% on R/A; al5 14:05 Body Mass Index 30.13 (95.25 kg, 177.8 cm) ll1 14:05 Pain Scale: Adult ll1 16:30 Pain Scale: Adult db ED Course: 13:47 Patient arrived in ED. am2 13:58 Asael May MD is Attending Physician. sp3 14:06 Triage completed. ll1 14:11 Marika Putnam, RN is Primary Nurse. db 14:11 Arm band placed on Patient placed in an exam room. db 14:27 Missed attempt(s): 20 gauge in left antecubital area. Bleeding controlled, band aid am7 applied, catheter tip intact. 14:33 Inserted saline lock: 20 gauge in right antecubital area, using aseptic technique. db Blood collected. Flushed with 10 mL NS. 16:08 CT Abd/Pelvis - IV Contrast Only In Process Unspecified. EDMS 16:[address] from [address]. db 17:17 Patient has correct armband on for positive identification. Bed in low position. Call db light in reach. Side rails up X 1. Pulse ox on. NIBP on. Warm blanket given. Pillow given. 18:03 Solis Bullard MD is Hospitalizing Provider. sp3 19:14 Ciera Martell, RN is Primary Nurse. al5 19:16 Provided Education on: transfer of care to med surg. al5 19:16 No provider procedures requiring assistance completed. Patient admitted, IV remains in al5 place. Administered Medications: 14:35 Drug: Ondansetron IVP 4 mg IVP once; over 2 minutes Route: IVP; Site: right forearm; db 17:18 Follow up: Response: No adverse reaction db 14:35 Drug: morphine IVP or IV 4 mg IVP once over 4 mins Route: IVP; Infused Over: 4 mins; db Site: right forearm; 17:19 Follow up: Response: No adverse reaction db 14:35 Drug: NS 0.9% IV 1000 ml IV at 1 bolus Per protocol; to be given as a bolus over 60 db minutes Route: IV; Rate: 1 bolus; Site: right forearm; 16:35 Follow up: Response: No adverse reaction; IV Status: Completed infusion; IV Intake: db 1000ml 16:33 Drug: morphine IVP or IV 4 mg IVP once over 4 mins Route: IVP; Infused Over: 4 mins; db Site: right antecubital; 17:18 Follow up: Response: No adverse reaction; Pain is decreased db 17:16 Drug: NS 0.9% IV 1000 ml IV at 1 bolus Per protocol; to be given as a bolus over 60 db minutes Route: IV; Rate: 1 bolus; Site: right antecubital; 20:04 Follow up: Response: No adverse reaction; IV Status: Completed infusion; IV Intake: al5 1000ml Medication: 17:17 VIS not applicable for this client. db Intake: 16:35 IV: 1000ml; Total: 1000ml. db 20:04 IV: 1000ml; Total: 2000ml. al5 Outcome: 18:04 Decision to Hospitalize by Provider. sp3 21:37 Admitted to Med/surg accompanied by tech, via wheelchair, room 410, with chart, al5 21:37 Condition: stable 21:37 Instructed on the need for admit, 21:37 Patient left the ED. al5 Signatures: Dispatcher [employer] EDMS Ciera Alvarez am2 Deonna Espinosa, LISA RN ll1 Asael May MD MD sp3 Marika Putnam RN RN db Ciera Martell RN RN al5 Any Cole am7 Corrections: (The following items were deleted from the chart) 14:53 14:05 Chief complaint: Patient states: Upper abdominal pain for 1 days. States its a ll1 pancreatitis flare-up ll1 16:41 16:30 BP 114 / 80; Pulse 90bpm; Resp 16bpm; Pulse Ox 95%; db db
[2024-12-07] MEDS ORDERED: ACETAMINOPHEN 325 MG TABLET PO PRN (18:08)
--- NOTE | 2024-12-07 18:08 | P.HP ---
Certification for Inpatient Patient admitted to: Inpatient With expected LOS: >2 Midnights Practitioner: I am a practitioner with admitting privileges, knowledge of patient current condition, hospital course, and medical plan of care. Services: Services provided to patient in accordance with Admission requirements found in Title 42 Section 412.3 of the Code of Federal Regulations Patient History Date of Service: 12/07/24 Reason for admission: Abdominal Pain History of Present Illness: 49 yrs old Male with past medical history of diabetes, hypertension, hyperlipi demia, history of hypertriglyceridemia and pancreatitis induced by hypercholesterolemia who was brought to ER with abdominal pain which has been going on for the last 2 days and has been progressively getting worse. It seems similar to his previous episodes of pancreatitis. Denies any use of alcohol. He had a history of cholecystectomy . Denies any fever or chills. Denies any chest pain or shortness of breath. Pain is located epigastric, spread to diffuse abdominal pain. Denies any nausea or vomiting. Patient was assessed in the ER and is admitted for further management of acute on chronic pancreatitis Allergies No Known Food Allergies Allergy (Verified 05/18/23 03:42) unkown Home medications list reviewed: Yes Home Medications: Atorvastatin Calcium 40 mg PO DAILY 05/18/23 Cyclobenzaprine [Flexeril*] 10 mg PO BEDTIME PRN 05/18/23 Gabapentin 600 mg PO BID 05/18/23 Etodolac 500 mg PO BIDP PRN 01/11/24 Insulin Glargine,Hum.rec.anlog [Insulin Glargine Solostar] 10 unit SQ DAILY 01/11/24 glipiZIDE [Glipizide] 10 mg PO DAILY 01/11/24 Fenofibrate 160 mg PO DAILY #30 tab 01/15/24 icosapent ethyL [Vascepa] 1 gm PO BID #60 01/15/24 icosapent ethyL [Vascepa] 1 gm PO BID #60 cap 01/15/24 - Past Medical/Surgical History Diabetic: Yes Past Medical History: Reviewed- Non-Contributory -: DM -: Hypertriglyceridemia -: Hypertension -: Hyperlipidemia -: Pancreatitishypertriglyceridemia induced Past Surgical History: Reviewed- Non-Contributory -: b/l knee surgeries -: Cholecystectomy Psychosocial/ Personal History: 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, lives at home with family - Family History Father -: Heart disease Mother -: Diabetes - Social History Smoking Status: Never smoker Alcohol use: No CD- Drugs: No Caffeine use: Yes Review of Systems 10-point ROS is otherwise unremarkable General: Weakness Respiratory: Unremarkable Cardiovascular: Unremarkable Gastrointestinal: Abdominal Pain Genitourinary: Unremarkable Musculoskeletal: Unremarkable Physical Examination - Vital Signs Temperature: 97.8 F Blood Pressure: 138/76 Pulse: 76 Respirations: 18 Pulse Ox (%): 94 - Physical Exam General: Alert, In no apparent distress, Oriented x3 HEENT: Atraumatic, Normocephalic Neck: Supple Respiratory: Clear to auscultation bilaterally, Normal air movement Cardiovascular: Regular rate/rhythm, Normal S1 S2 Capillary refill: <2 Seconds Gastrointestinal: W/out hepatosplenomegaly, Tenderness Musculoskeletal: No clubbing, No swelling Integumentary: No rashes Neurological: Normal speech, Normal strength at 5/5 x4 extr Lymphatics: No axilla or inguinal lymphadenopathy - Studies Laboratory Data (last 24 hrs) 12/07/24 12/07/24 14:23 14:23 WBC 9.00 Hgb 15.6 Hct 46.3 Plt Count 138 L Sodium 132 L Potassium 4.8 BUN 15 Creatinine 1.19 Glucose 346 H Total Bilirubin 0.8 AST 84 H ALT 60 Alkaline Phosphatase 66 Lipase 536 H Assessment and Plan - Plan Acute on chronic pancreatitis Pain control N.p.o. for now IV fluids Monitor lipid panel Hypertension Antihypertensives titrated Continue home medications and titrate as needed Hyperlipidemia Continue statin Diabetes Insulin sliding scale Accu-Chek every 6 hours History of hypertriglyceridemia Will get a lipid panel Hyponatremia Monitor electrolytes and replace accordingly GI/DVT prophylaxis Advanced directive full code Discharge Plan: Home Plan to discharge in: 48 Hours - Advance Directives Does patient have a Living Will: No Does patient have a Durable POA for Healthcare: No - Code Status/Comfort Care Code Status: Full Code Time Spent Managing Pts Care (In Minutes): 48
[2024-12-07] MEDS ORDERED: D10W 125 ML IV PRN (18:12)
[2024-12-07] MEDS ORDERED: GLUCAGON 1 MG/VIAL IM PRN (18:12)
[2024-12-07] MEDS ORDERED: MORPHINE 2 MG/ML SYR ONE (19:43)
[2024-12-07] MEDS ORDERED: Ringers Lactate 1,000 ML IV ONE (19:44)
[2024-12-07] MEDS: MORPHINE 2 MG/ML SYR IV PRN (19:51)
[2024-12-07] MEDS: Ringers Lactate 1,000 ML IV SCH (19:51)
[2024-12-07] MEDS: HYDROCODONE/APAP 5/325 MG TAB PO PRN (22:23)
[2024-12-07] MEDS: INSULIN REGULAR (HUMAN) 100 UNIT/ML SQ SCH (23:23)
[2024-12-07 23:38] LABS: HDL Cholesterol 24 mg/dL (40-60)
[2024-12-07 23:49] LABS: LDL, Direct 114 mg/dL (100-129)
[2024-12-08 06:37] LABS: Absolute Basophils 0.1 K/uL (0-0.5); Absolute Eosinophils 0.2 K/uL (0-0.5); Absolute Lymphocytes (CBC) 2.1 K/uL (0.7-4.9); Absolute Monocytes 0.5 K/uL (0.1-1.3); Basophils % 0.8 % (0-1.3); Eosinophils % 3.2 % (0-4.4); Hematocrit 38.4 % (39.6-49.0); Hemoglobin 14.3 g/dL (13.6-17.9); Lymphocytes % 26.2 % (15.3-44.8); MCV 83.6 fL (80-100); MPV 8.3 fL (7.6-11.3); Monocytes % 5.9 % (3.3-12.3); Neutrophils % 63.9 % (41.7-73.7); Nucleated Red Blood Cells % 0.1 % (0-0); Platelets 172 thou/uL (152-406); Red Cell Distribution Width 16.8 % (12.1-15.2)
[2024-12-08 06:58] LABS: MCH 29.1 pg (27.0-35.0); MCHC 33.5 g/dL (32.0-36.0)
[2024-12-08 08:21] LABS: Albumin 3.2 g/dL (3.4-5.0); Anion Gap 10.3 mEq/L (5.0-15.0); Bilirubin Total 0.9 mg/dL (0.2-1.0); Globulin 3.3 g/dL (2.3-3.5); Phosphorus 3.4 mg/dL (2.5-4.9); Protein, Total 6.5 g/dL (6.4-8.2)
[2024-12-08 08:22] LABS: Magnesium 2.1 mg/dL (1.6-2.4); Potassium 4.3 mEq/L (3.5-5.1)
[2024-12-08] MEDS: ENOXAPARIN 40 MG/0.4 ML SQ SCH (08:26)
[2024-12-08] MEDS ORDERED: D50W 25 GM/50 ML SYRINGE IV PRN (13:00)
[2024-12-08] MEDS ORDERED: GLUCAGON 1 MG/VIAL IM PRN (13:00)
[2024-12-08] MEDS: D5 0.9 NS 1,000 ML IV SCH ×2 (13:00→13:32)
[2024-12-08] MEDS: INSULIN REGULAR, HUMAN 100 UNIT in NA CHLORIDE 0.9% 100 ML IV SCH (14:10)
[2024-12-08] MEDS: MORPHINE 4 MG/ML SYR IV PRN (18:17)
[2024-12-09 05:57] LABS: Albumin 2.9 g/dL (3.4-5.0); Albumin/Globulin Ratio 0.9 (1.1-1.8); Anion Gap 10.2 mEq/L (5.0-15.0); Bilirubin Total 0.7 mg/dL (0.2-1.0); Globulin 3.2 g/dL (2.3-3.5); Magnesium 2.1 mg/dL (1.6-2.4); Potassium 3.2 mEq/L (3.5-5.1); Protein, Total 6.1 g/dL (6.4-8.2)
[2024-12-09 06:13] LABS: Phosphorus 2.9 mg/dL (2.5-4.9)
[2024-12-09] MEDS: POTASSIUM 25 MEQ EFFERV TAB PO ONE (06:16)
[2024-12-09] MEDS: POTASSIUM CL SA 10 MEQ TAB PO ONE (07:13)
--- NOTE | 2024-12-09 15:10 | P.PN ---
Subjective Date of Service: 12/08/24 Chief Complaint: Abdominal Pain Patient is complaining of abdominal pain. He denies any nausea vomiting and requesting to eat. Physical Examination - Vital Signs Temperature: 98.0 F Blood Pressure: 109/73 Pulse: 97 Respirations: 18 Pulse Ox (%): 100 Assessment And Plan - Plan Physical examination General: Alert and oriented x3, NAD, HEENT: Anicteric sclera Neck: Supple, no elevated JVD Heart: Heart sounds 1 and 2 normal, regular rhythm, normal rate, no pedal edema Lungs: Clear to auscultation bilaterally, adequate breath sounds bilaterally, no rhonchi or crackles. Abdomen: Soft, epigastric tenderness, nontender, normal bowel sounds. Extremities: No tenderness, no deformity Skin: Normal skin turgor, no rash, no nodules or ulcers. Neuro: No focal motor deficit. Normal speech. Psychiatry: Normal mood, no agitation. Assessment and plan Acute on chronic pancreatitis Hypertriglyceridemia N.p.o. for now, ice chips and sips of water. Acute pancreatitis secondary to hypertriglyceridemia Transferred patient to ICU and start insulin drip with IV D5 infusion Monitor triglyceride level twice daily Monitor lipase level daily Hypertension Patient has been normotensive, occasionally has soft blood pressure Hold HCTZ for Diabetes melitis type 2 Patient is on insulin drip for hypertriglyceridemia Accu-Chek every 2 hours Hyponatremia Hyponatremia resolved with IV D5NS GI/DVT prophylaxis: Lovenox Advanced directive: full code
--- NOTE | 2024-12-09 15:23 | P.PN ---
Subjective Date of Service: 12/09/24 Chief Complaint: Abdominal Pain Patient is complaining of persistent abdominal pain. He denies any nausea or vomiting. Triglyceride level trended down. Lipase level has normalized. Physical Examination - Vital Signs Temperature: 98.0 F Blood Pressure: 109/73 Pulse: 97 Respirations: 18 Pulse Ox (%): 100 Assessment And Plan - Plan Physical examination General: Alert and oriented x3, NAD, HEENT: Anicteric sclera Heart: Heart sounds 1 and 2 normal, regular rhythm, normal rate. Lungs: Clear to auscultation bilaterally, adequate breath sounds bilaterally, no rhonchi or crackles. Abdomen: Soft, nontender, normal bowel sounds. Extremities: No tenderness. Skin: Normal skin turgor, no rash, no nodules or ulcers. Neuro: No focal motor deficit. Normal speech. Psychiatry: Normal mood, no agitation. Assessment and plan Acute on chronic pancreatitis Hypertriglyceridemia N.p.o. for now, ice chips and sips of water. Triglyceride level trended down significantly with insulin drip Continue insulin drip with IV D5 infusion Monitor triglyceride level twice daily Analgesics as needed. Hypertension Patient has been normotensive, occasionally has soft blood pressure HCTZ is on hold. Diabetes melitis type 2 Patient is on insulin drip for hypertriglyceridemia Accu-Chek every 2 hours Hyponatremia Hyponatremia resolved with IV D5NS GI/DVT prophylaxis: Lovenox Advanced directive: full code
[2024-12-10 06:22] LABS: Albumin 2.9 g/dL (3.4-5.0); Albumin/Globulin Ratio 0.9 (1.1-1.8); Anion Gap 8.4 mEq/L (5.0-15.0); Bilirubin Total 0.9 mg/dL (0.2-1.0); Globulin 3.2 g/dL (2.3-3.5); Potassium 3.4 mEq/L (3.5-5.1); Protein, Total 6.1 g/dL (6.4-8.2)
[2024-12-10 06:23] LABS: Absolute Eosinophils 0.2 K/uL (0-0.5); Absolute Lymphocytes (CBC) 1.5 K/uL (0.7-4.9); Absolute Monocytes 0.3 K/uL (0.1-1.3); Absolute Neutrophil 2.1 K/uL (1.8-8.0); Basophils % 0.8 % (0-1.3); Eosinophils % 4.4 % (0-4.4); Hematocrit 36.2 % (39.6-49.0); Hemoglobin 12.4 g/dL (13.6-17.9); Lymphocytes % 36.4 % (15.3-44.8); MCH 28.5 pg (27.0-35.0); MCHC 34.1 g/dL (32.0-36.0); MCV 83.6 fL (80-100); MPV 8.1 fL (7.6-11.3); Monocytes % 6.6 % (3.3-12.3); Neutrophils % 51.8 % (41.7-73.7); Platelets 132 thou/uL (152-406); RBC Red Blood Cell Count 4.34 M/uL (4.33-5.43); Red Cell Distribution Width 16.5 % (12.1-15.2)
--- NOTE | 2024-12-10 13:24 | P.PN ---
Date of Service: 12/10/24 Subjective: feels slightly better compared to admission nothing worsening/new asking for more solid foods afebrile ROS: 10 point ROS as noted above, otherwise negative Physical Exam: GEN: Alert, NAD CV: Regular rate and rhythm, no edema Pulm: Nonlabored respirations on room air, clear bilaterally ABD: soft, moderate epigastric tenderness, nondistended Problem List: Acute on chronic pancreatitis secondary to hyperTG pseudohyponatremia secondary to hyperglycemia Hypertension NIDDM2 Acute on chronic pancreatitis secondary to hyperTG CT abdomen/pelvis (12/07): acute uncomplicated interstitial pancreatitis involving the distal body of the pancreas. Diffuse hepatic steatosis. N.p.o. for now, ice chips and sips of water. Continue insulin drip for now until TG < 5000 continue IVF with D5w Triglycerides improving Lipase resolved (12/09) pain control pseudohyponatremia secondary to hyperglycemia resolved Hypertension Patient has been normotensive, occasionally has soft blood pressure HCTZ is on hold. NIDDM2 continue insulin drip Accu-cheks, SSI VTE: Lovenox Code: Full Dispo: Home Pending triglycerides improve continue insulin drip Time Spent Managing Pts Care (In Minutes): 55
[2024-12-10] MEDS: ONDANSETRON 4 MG/2 ML VIAL IV PRN (20:53)
[2024-12-11 05:13] LABS: Albumin 2.9 g/dL (3.4-5.0); Albumin/Globulin Ratio 0.9 (1.1-1.8); Anion Gap 5.4 mEq/L (5.0-15.0); Bilirubin Total 0.7 mg/dL (0.2-1.0); Globulin 3.2 g/dL (2.3-3.5); Potassium 3.4 mEq/L (3.5-5.1); Protein, Total 6.1 g/dL (6.4-8.2)
[2024-12-11 06:09] LABS: Phosphorus 2.9 mg/dL (2.5-4.9)
[2024-12-11] MEDS: Mupirocin NASAL 2 APPL/1 GM TUBE NAS SCH (07:35)
--- NOTE | 2024-12-11 08:13 | P.PN ---
Date of Service: 12/11/24 Subjective: feels some slow improvement each day tolerated some crackers, liquids without worsening pain/nausea no events overnight ambulating without issues ROS: 10 point ROS as noted above, otherwise negative Physical Exam: GEN: Alert, NAD CV: Regular rate and rhythm, no edema Pulm: Nonlabored respirations on room air, clear bilaterally ABD: soft, moderate epigastric tenderness, nondistended Problem List: Acute on chronic pancreatitis secondary to hyperTG pseudohyponatremia secondary to hyperglycemia Hypertension NIDDM2 Acute on chronic pancreatitis secondary to hyperTG CT abdomen/pelvis (12/07): acute uncomplicated interstitial pancreatitis involving the distal body of the pancreas. Diffuse hepatic steatosis. ice chips and sips of water. Continue insulin drip for now until TG ~500 continue IVF with D5w Triglycerides improving elevated Lipase resolved (12/09) pain control pseudohyponatremia secondary to hyperglycemia resolved Hypertension Patient has been normotensive, occasionally has soft blood pressure HCTZ is on hold. NIDDM2 continue insulin drip Accu-cheks, SSI VTE: Lovenox Code: Full Dispo: Home Pending triglycerides improve continue insulin drip Time Spent Managing Pts Care (In Minutes): 55
[2024-12-12 05:52] LABS: Albumin 2.9 g/dL (3.4-5.0); Anion Gap 7.6 mEq/L (5.0-15.0); Bilirubin Total 0.8 mg/dL (0.2-1.0); Phosphorus 3.3 mg/dL (2.5-4.9); Potassium 3.6 mEq/L (3.5-5.1); Protein, Total 5.9 g/dL (6.4-8.2)
[2024-12-12] MEDS: POTASSIUM CL SA 10 MEQ TAB PO ONE (06:25)
--- NOTE | 2024-12-12 07:50 | P.PN ---
Date of Service: 12/12/24 Subjective: continues with daily improvement no events overnight urinating without issues ROS: 10 point ROS as noted above, otherwise negative Physical Exam: GEN: Alert, NAD CV: Regular rate and rhythm, no edema Pulm: Non-labored respirations on room air, clear bilaterally ABD: soft, moderate epigastric tenderness, non-distended Problem List: Acute on chronic pancreatitis secondary to hyperTG pseudohyponatremia secondary to hyperglycemia Hypertension NIDDM2 Acute on chronic pancreatitis secondary to hyperTG CT abdomen/pelvis (12/07): acute uncomplicated interstitial pancreatitis involving the distal body of the pancreas. Diffuse hepatic steatosis. ice chips and sips of water. Continue insulin drip for now until TG ~500 continue IVF with D5w Triglycerides improving elevated Lipase resolved (12/09) Home fenofibrate resumed 12/12 pain control pseudohyponatremia secondary to hyperglycemia resolved Hypertension Patient has been normotensive, occasionally has soft blood pressure HCTZ is on hold. NIDDM2 continue insulin drip Accu-cheks, SSI VTE: Lovenox Code: Full Dispo: Home, ~1-2 days Pending triglycerides improve, off insulin drip Time Spent Managing Pts Care (In Minutes): 55
[2024-12-12] MEDS: FENOFIBRATE 160 MG TAB PO SCH (08:00)
[2024-12-12] MEDS ORDERED: MORPHINE 2 MG/ML SYR IV PRN (17:08)
[2024-12-13 01:43] VITALS: O2SAT 98
[2024-12-13] MEDS ORDERED: BENZONATATE 100 MG CAP PO PRN (03:20)
[2024-12-13] MEDS ORDERED: GUAIFENESIN 600 MG SA TAB PO PRN (03:20)
[2024-12-13 05:01] VITALS: BMI 32.8
[2024-12-13 06:21] LABS: ALT/SGPT 35 U/L (16-61); AST/SGOT 20 U/L (15-37); Albumin 2.8 g/dL (3.4-5.0); Albumin/Globulin Ratio 0.9 (1.1-1.8); Alkaline Phosphatase 49 U/L (45-117); Anion Gap 8.4 mEq/L (5.0-15.0); Bicarbonate 24 mEq/L (21-32); Bilirubin Total 0.8 mg/dL (0.2-1.0); Globulin 3.2 g/dL (2.3-3.5); Glomerular Filtration Rate 109 ml/min (=/>90); Glucose Level 182 mg/dL (74-106); Lipase 25 U/L (13-75); Magnesium 1.8 mg/dL (1.6-2.4); Potassium 3.4 mEq/L (3.5-5.1); Sodium Level 139 mEq/L (136-145)
[2024-12-13 06:26] LABS: BUN Blood Urea Nitrogen < 3 mg/dL (7-18)
--- NOTE | 2024-12-13 11:11 | P.PN ---
Date of Service: 12/13/24 Subjective: no events overnight improving asking more solid foods ROS: 10 point ROS as noted above, otherwise negative Physical Exam: GEN: Alert, NAD CV: Regular rate and rhythm, no edema Pulm: Non-labored respirations on room air, clear bilaterally ABD: soft, moderate epigastric tenderness, non-distended Problem List: Acute on chronic pancreatitis secondary to hyperTG pseudohyponatremia secondary to hyperglycemia Hypertension NIDDM2 Acute on chronic pancreatitis secondary to hyperTG CT abdomen/pelvis (12/07): acute uncomplicated interstitial pancreatitis involving the distal body of the pancreas. Diffuse hepatic steatosis. ice chips and sips of water. s/p insulin drip (12/08-12/13) IVF dc'd 12/13 Triglycerides improving elevated Lipase resolved (12/09) Home fenofibrate resumed 12/12 pain control pseudohyponatremia secondary to hyperglycemia resolved Hypertension Patient has been normotensive, occasionally has soft blood pressure HCTZ is on hold. NIDDM2 continue insulin drip Accu-cheks, SSI VTE: Lovenox Code: Full Dispo: Home Pending tolerating diet Time Spent Managing Pts Care (In Minutes): 55
[2024-12-13] MEDS ORDERED: GLUCAGON 1 MG/VIAL IM PRN (11:52)
[2024-12-13] MEDS ORDERED: D10W 125 ML IV PRN (11:52)
[2024-12-13] MEDS: INSULIN REGULAR (HUMAN) 100 UNIT/ML SQ SCH (12:13)
[2024-12-13 15:58] VITALS: BP 151/89; TEMP 98.4
== END 2024-12-13 15:00 | disposition home or self-care (01) | DRG 439 ==
LOC: ER 13:46 → ERHOLD 18:08 → 4TH 21:05 → 3RD-ICU 12-08 12:51
PROVIDERS: ADMIT Family Medicine; ATTEND Hospitalist
DX: K85.90 Acute pancreatitis without necrosis or infection, unspecified (principal); E87.1 Hypo-osmolality and hyponatremia; I10 Essential (primary) hypertension; K86.1 Other chronic pancreatitis; E11.65 Type 2 diabetes mellitus with hyperglycemia; E78.1 Pure hyperglyceridemia; E78.00 Pure hypercholesterolemia, unspecified; Z90.49 Acquired absence of other specified parts of digestive tract; Z79.84 Long term (current) use of oral hypoglycemic drugs; Z79.4 Long term (current) use of insulin; Z79.899 Other long term (current) drug therapy
CPT/HCPCS: 36415; 74177; 80053; 80061; 81001; 82947; 83690; 83735; 84100; 84132; 84478; 85025; 99285; J1650; J2270; J2405; J7030; J7042; J7120; Q9967